=== PATIENT | female | born 1935 | race Caucasian/White ===

== ENCOUNTER 2020-02-22 11:44 | Inpatient (IN) | payer MEDICARE, SELFPAY ==
[2020-02-22 12:50] VITALS: BMI 30.5
[2020-02-22 12:52] VITALS: BP 165/72; PULSE 81; RESP 16; TEMP 36.6; O2SAT 92
[2020-02-22 13:09] VITALS: BMI 30.6
--- NOTE | 2020-02-22 14:35 | HP.PCM_ITS ---
Problem List (1) Debility Status: Acute (2) Cellulitis and abscess of buttock Status: Acute (3) Pulmonary embolism Status: Acute (4) Acute respiratory failure Status: Acute (5) Chronic obstructive pulmonary disease Status: Chronic (6) Hypertension Status: Chronic (7) Hyponatremia Status: Acute (8) Hypokalemia Status: Acute (9) Anemia Status: Acute History of Present Illness Date of Admission: 02/22/20 Chief Complaint: Here for rehabilitation, strengthening, prior to discharge home with . 02/08/20 The patient is a 84 year old Female with below past medical history admitted to [facility]. Admitted for cellulitis/abscess of buttock wounds. General Surgery performed incision & drainage of buttock abscess. Treated with IV antibiotics, discharged on oral antibiotics to compete course. Diagnosed with pulmonary embolism, treated with Eliquis to complete 3 to 6 month course. IVC filter placed due to bleeding on anticoagulation. Need to follow up with vascular surgery in 3 months for IVC filter removal. 02/22/20 Admit to TCU with debility, here for rehabilitation, strengthening, p rior to discharge home with . Past Medical History Past Medical History (Chronic Problems): Chronic Problems Chronic obstructive pulmonary disease (Chronic) Hypertension (Chronic) Allergies No Known Allergies Allergy (Verified 02/22/20 13:24) Home Medications: Ambulatory Orders Medication Instructions Recorded Acetaminophen [Non-Aspirin] 650 mg PO Q6H PRN 02/22/20 Albuterol Aerosols [Ventolin 2.5 mg INHALATION Q4HWA.RT PRN 02/22/20 Aerosols] Albuterol IH (ProAir) [Proair Hfa 2 puff INHALATION Q6H PRN PRN 02/22/20 (SP)Vent Pts] Amoxicillin/Potassium Clav 1 ea PO BID 02/22/20 [Amox-Clav 875-125 mg Tablet] Apixaban [Eliquis] 5 mg PO BID 02/22/20 Aspirin [Aspirin EC] 81 mg PO DAILY 02/22/20 Fluticasone 0.05% [Flonase Nasal 2 spray NASAL DAILY 02/22/20 Warren] Fluticasone/Umeclidin/Vilanter 1 ea IH DAILY 02/22/20 [Trelegy Ellipta 200-62.5-25] L. Acidophilus/L.bulgaricus 1 ea PO BID 02/22/20 [Lactobacillus Tablet] Metoprolol Succinate [Toprol Xl] 25 mg PO DAILY 02/22/20 Oxyquinoline-Na Lauryl Sulfate 0.025 % VAGINAL DAILY 02/22/20 Pantoprazole Sodium [Protonix] 40 mg PO BID 02/22/20 Potassium Chloride [Klor-Con M20] 20 meq PO BID 02/22/20 Sulfamethoxazole/Trimethoprim 1 ea PO BID 02/22/20 [Bactrim Ds Tablet] Surgical History: appendectomy, cataract - OD., cholecystectomy, colectomy - Partial., - - Ostomy, incision & drainage buttock abscess, tubal ligation. 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 Drugs: None - *Family History Maternal History Items: Diabetes, Heart Disease Review of Systems Constitutional: Denies: Chills, Fever, Weight Change HEENT: Denies: Head Aches, Sinus Congestion, Sinus Drainage Cardiovascular: Denies: Chest Pain, Palpitations Respiratory: Denies: Cough, Shortness of breath at rest, Sputum production Gastrointestinal: Denies: Abdominal Pain, Nausea, Vomiting Genitourinary: Denies: Dysuria Musculoskeletal: Denies: Joint Pain, Joint Tenderness Skin: Denies: Rash, Wounds Neurological: Denies: Numbness, Tingling, Focal weakness Psychiatric: Denies: Anxiety, Depression, Homicidal Ideations, Suicidal Ideations Hematologic/ Lymphatic: Denies: Easy Bruising, Easy Bleeding VTE Information - Inpt Only VTE Present on Admission: Yes VTE Mechan Device Prophylaxis: Knee High KOKO Hose VTE Pharm Prophylaxis ordered?: No Reason prophylaxis not ordered:: Treatment Not Indicated Patient Problems: Active and Suspected Problems Debility (Acute) Cellulitis and abscess of buttock (Acute) Pulmonary embolism (Acute) Acute respiratory failure (Acute) Hyponatremia (Acute) Hypokalemia (Acute) Anemia (Acute) - Physical Exam Vitals/I&O's: Vital Signs Temp Pulse Resp BP Pulse Ox 97.9 F 81 16 165/72 H 92 02/22/20 12:52 02/22/20 12:52 02/22/20 12:52 02/22/20 12:52 02/22/20 12:52 Oxygen Delivery Method Room Air Weight: 73.391 kg Body Mass Index (BMI) 30.5 Intake and Output for Last 24 Hours 02/20/20 02/21/20 02/22/20 23:59 23:59 23:59 Intake Total 120 / 120 Balance 120 / 120 General: Alert, Oriented x3, Cooperative HEENT: Atraumatic, PERRLA, EOMI, Normocephalic Neck: Supple, No JVD, Negative Carotid Bruits Lungs: Clear to auscultation, Normal air movement Cardiovascular: Regular rate, No murmurs Abdomen: Bowel Sounds Present, Soft, Non Tender, - - Colostomy. Extremities: No edema, Capillary Refill Less than 3 Seconds Skin: Ulcer/ Wound - Buttock wound per wound nurse. Musculoskeletal: No Tenderness to Palpation of Joints or Extremities Neurological: Cranial nerves II-XII grossly intact Psych/Mental Status: Normal Affect, Appropriate Current Medications Acetaminophen (Acetaminophen 325 Mg Tablet) 650 mg PO Q6H PRN PRN Reason: Pain Score 1-10 Albuterol Sulfate (Albuterol Sulfate 8 Gm Inhaler (60 Puffs)) 2 puff INHALATION Q6H PRN PRN PRN Reason: SOB &/OR WHEEZING Amoxicillin/Clavulanate Potassium (Amox/Clavulanate 875 Mg Tablet) [facility] Stop: 02/25/20 17:01 Apixaban (Apixaban 5 Mg Tablet) 5 mg PO BID [facility] Aspirin (Aspirin E.C. 81 Mg Tablet) 81 mg PO DAILY@0800 [facility] Fluticasone Propionate (Fluticasone 0.05% 1 [place] Nasal.Sry) 2 spray NASAL DAILY [facility] Lactobacillus Acidophilus (Lactobacillus Acidophilus) 1 tablet PO BID [facility] Stop: 02/29/20 18:01 Metoprolol Succinate (Metoprolol(Xl)Succ 25 Mg Tablet) 25 mg PO DAILY [facility] Pantoprazole Sodium (Pantoprazole Sodium 40 Mg Tablet) 40 mg PO BID [facility] Potassium Chloride (Potassium Chloride 20 Meq Tablet) 20 meq [facility] Fluticasone/Salmeterol (Fluticasone/Salmeterol 232-14 Inhaler) 1 puff IH BID [facility] Trimethoprim/Sulfamethoxazole (Smz/Tmp Ds Tablet) [facility] Stop: 02/25/20 17:01 Tuberculin PPD (Tuberculin,Purif.Prot.Deriv. 50 Tu/Ml Vial) 5 tu ID X1 ONE Stop: 02/23/20 10:01 Tuberculin PPD (Tuberculin,Purif.Prot.Deriv. 50 Tu/Ml Vial) 5 tu ID X1 ONE Stop: 03/01/20 10:01 Umeclidinium [place] (Umeclidinium [place] Inhaler) 1 puff IH DAILY [facility] Assessment/Plan All Active Problems Debility (Acute) Cellulitis and abscess of buttock (Acute) Pulmonary embolism (Acute) Acute respiratory failure (Acute) Hyponatremia (Acute) Hypokalemia (Acute) Anemia (Acute) 84 year old female with below past medical history hospitalized for cellulitis/abscess of buttock, underwent incision & drainage, complicated by acute respiratory failure secondary to pulmonary embolism, bleeding secondary to anticoagulation requiring IVC filter placement, admitted to TCU with debility, here for rehabilitation, strengthening, wound care, prior to discharge home with . * Debility - PT/OT. * Pain - Tylenol 1000MG Q6H PRN pain (1-10). * Bowel - Miralax 17GM daily, Senna/colace 1 tablet BID, MOM 30ML daily PRN, Dulcolax 10MG IN daily PRN. * Adult immunization - Administer Prevnar 13, Pneumovax 23, Fluzone as appropriate. * DVT prophylaxis - Not necessary, already on Eliquis. * COPD - Advair 232-14 1 puff BID, Umeclidinium 1 puff daily, Albuterol MDI 2 puffs Q6H PRN. * Cellulitis of buttock - Augmentin 875MG BID thru 02/25/20, Bactrim DS 1 tablet BID thru 02/25/20. * Pulmonary embolism - Eliquis 5MG BID thru 08/23/19. * Allergic Rhinitis - Flonase 2 spray nasal daily. * GI prophylaxis - Lactobacillus 1 tablet BID thru 02/29/20. * Hypertension - Metoprolol succinate 25MG daily. * GERD - Pantoprazole 40MG BID. * Hypokalemia - KCL 20MEQ BID. * Nutrition - Erick 1 packet BID. * Buttock wound - Consult Wound nurse.
[2020-02-22 15:50] VITALS: BP 165/72; PULSE 81; RESP 16; TEMP 36.6; O2SAT 92
[2020-02-22 15:51] VITALS: PULSE 81; RESP 16; O2SAT 92
--- NOTE | 2020-02-22 16:03 | CASEMGMT ---
Social Work Discussed code status with pt. Pt wishes to be DNR-CC. Nursing notified. MOLST form reviewed with pt, communication to , placed in chart. Rebeca Ricketts, HUMAN RESOURCES DEPARTMENT SUPERVISOR [employer]ULLER [employer]ROUGH
[2020-02-22] MEDS: Pantoprazole Sodium 40 MG Tablet PO (18:20)
[2020-02-22] MEDS: Smz/Tmp Ds Tablet 1 TABLET PO (18:20)
[2020-02-22] MEDS: APIXABAN 5 MG TABLET PO (18:20)
[2020-02-22] MEDS: Amox/Clavulanate 875 MG Tablet PO (18:20)
[2020-02-22] MEDS: Fluticasone/Salmeterol 232-14 Inhaler 1 PUFF IH (18:21)
--- NOTE | 2020-02-22 20:10 | NURSING ---
Called into pt room by ORGANIZATIONAL DEVELOPMENT MANAGER to check on buttock dressing, had come off at some point, wound cleaned with NS and new wet to dry dressing applied, covered with abd. Pt tolerated well.
[2020-02-23] MEDS: Acetaminophen 500 MG Tablet 1000 MG PO (00:06)
[2020-02-23 05:31] VITALS: BP 130/62; PULSE 83; RESP 18; TEMP 36.3; O2SAT 92
[2020-02-23 05:34] VITALS: BP 130/62; PULSE 83
[2020-02-23] MEDS: Polyethylene Glycol 3350 17 GM PACKET PO (05:34)
[2020-02-23] MEDS: Metoprolol(XL)Succ 25 MG Tablet PO (05:34)
[2020-02-23] MEDS: Senna/Docusate Sodium 1 Tablet PO ×2 (05:34→16:51)
[2020-02-23] MEDS: APIXABAN 5 MG TABLET PO ×2 (05:35→16:49)
[2020-02-23] MEDS: Pantoprazole Sodium 40 MG Tablet PO ×2 (05:35→16:51)
[2020-02-23] MEDS: Fluticasone 0.05% 1 SPRAY NASAL.SRY 2 SPRAY NASAL (05:36)
[2020-02-23] MEDS: Fluticasone/Salmeterol 232-14 Inhaler 1 PUFF IH ×2 (05:37→16:50)
[2020-02-23] MEDS: Umeclidinium Bromide Inhaler 1 PUFF IH (05:38)
[2020-02-23 06:59] LABS: Absolute Lymphocyte Count 1.73 X10^3/uL (0.83-4.51); Absolute Neutrophil Count 2.2 X10^3/uL (2.0-7.7); Basophil# 0.03 X10^3/uL; Basophil% 0.6 % (0-1); Eosinophil# 0.19 X10^3/uL; Eosinophils% 4.1 % (0-5); Hematocrit 31.4 % (37-47); Lymphocyte # 1.73 X10^3/ul (4.0); Lymphocyte % 37.2 % (19-41); Mean Corp Hgb Conc 31.8 g/dL (32-36); Mean Corpuscular Hgb 29.8 pg (27.0-32.0); Mean Corpuscular Volume 93.5 fL (81-99); Mean Platelet Vol. 9.2 fl (6.2-12.0); Monocyte# 0.48 X10^3/uL; Monocyte% 10.3 % (0-10); NRBC Flagged by Analyzer 0 % (0-5); Neutrophil # 2.21 X10^3/uL (2.7-7.7); Neutrophil % 47.6 % (47-70); Platelet Count 239 K/mm3 (150-450); RBC Distribution Width CV 16.3 % (11.6-14.6); RBC Distribution Width SD 55.8 fl (35.1-43.9); Red Blood Count 3.36 M/mm3 (4.2-5.4); White Blood Count 4.7 K/mm3 (4.4-11.0)
[2020-02-23 07:20] LABS: Anion Gap 4 (5-15); BUN 12 mg/dL (7-18); BUN/Creat Ratio 17.2 RATIO (10-20); Calcium,Total 8.5 mg/dL (8.5-10.1); Chloride 102 mmol/L (98-107); EST Glomerular Filtration Rate 85 mL/min (>60); Est Glom Filt Rate - Afr Amer 103 mL/min (>60); Estimated Creatinine Clearance 32.17 ml/min; Glucose 113 mg/dL (74-106); Potassium 3.3 mmol/L (3.5-5.1); Sodium Level 135 mmol/L (136-145)
[2020-02-23] MEDS: Smz/Tmp Ds Tablet 1 TABLET PO ×2 (07:57→16:49)
[2020-02-23] MEDS: Amox/Clavulanate 875 MG Tablet PO ×2 (07:57→16:49)
[2020-02-23] MEDS: Tuberculin,Purif.prot.deriv. 50 TU/ML Vial 5 ML ID (10:25)
[2020-02-23 14:15] VITALS: BP 86/57; PULSE 80; RESP 20; TEMP 36.2; O2SAT 90
[2020-02-24 05:28] VITALS: BP 91/50; PULSE 79; RESP 16; TEMP 36.6; O2SAT 90
[2020-02-24] MEDS: Senna/Docusate Sodium 1 Tablet PO (05:31)
[2020-02-24] MEDS: APIXABAN 5 MG TABLET PO ×2 (05:31→16:29)
[2020-02-24] MEDS: Pantoprazole Sodium 40 MG Tablet PO ×2 (05:31→16:29)
[2020-02-24] MEDS: Fluticasone/Salmeterol 232-14 Inhaler 1 PUFF IH ×2 (05:33→16:28)
[2020-02-24] MEDS: Umeclidinium Bromide Inhaler 1 PUFF IH (05:33)
[2020-02-24] MEDS: Amox/Clavulanate 875 MG Tablet PO ×2 (08:05→16:28)
[2020-02-24] MEDS: Smz/Tmp Ds Tablet 1 TABLET PO ×2 (08:05→16:30)
[2020-02-24 13:02] VITALS: PULSE 90; RESP 20; O2SAT 91
[2020-02-24 14:15] VITALS: BP 81/51; PULSE 82; RESP 16; TEMP 36.4; O2SAT 90
[2020-02-25 05:26] VITALS: BP 122/58; PULSE 72; RESP 16; TEMP 36.8; O2SAT 90
[2020-02-25] MEDS: Fluticasone/Salmeterol 232-14 Inhaler 1 PUFF IH ×2 (05:28→17:37)
[2020-02-25] MEDS: Umeclidinium Bromide Inhaler 1 PUFF IH (05:28)
[2020-02-25] MEDS: APIXABAN 5 MG TABLET PO ×2 (05:29→17:36)
[2020-02-25 05:30] VITALS: BP 122/58; PULSE 72
[2020-02-25] MEDS: Metoprolol(XL)Succ 25 MG Tablet PO (05:30)
[2020-02-25] MEDS: Pantoprazole Sodium 40 MG Tablet PO ×2 (05:30→17:36)
[2020-02-25] MEDS: Amox/Clavulanate 875 MG Tablet PO ×2 (07:57→17:36)
[2020-02-25] MEDS: Smz/Tmp Ds Tablet 1 TABLET PO ×2 (07:57→17:36)
--- NOTE | 2020-02-25 15:25 | NURSING ---
removed the colostomy appliance to assess the stoma to the left abdomen. stoma is well budded and pink. measures approx 1 1/2 and is oval in shape. peristomal skin is intact. cleansed with peristomal skin with warm water. pat dry. applied a new flat 2 piece Eze appliance with an Adaptic ring. pt tolerated well. appliance to be change twice a week and as needed.
--- NOTE | 2020-02-25 15:27 | NURSING ---
wound/stoma photo: abdomen
--- NOTE | 2020-02-25 15:28 | NURSING ---
wound photo: bilateral buttocks
[2020-02-25 17:48] VITALS: RESP 16; O2SAT 90
[2020-02-25 17:58] VITALS: BP 114/49; PULSE 68; RESP 18; TEMP 36.7; O2SAT 90
[2020-02-26 05:00] VITALS: BP 118/56; RESP 15; TEMP 36.1; O2SAT 97
[2020-02-26] MEDS: APIXABAN 5 MG TABLET PO ×2 (05:17→17:40)
[2020-02-26] MEDS: Umeclidinium Bromide Inhaler 1 PUFF IH (05:18)
[2020-02-26] MEDS: Pantoprazole Sodium 40 MG Tablet PO ×2 (05:20→17:40)
[2020-02-26 05:21] VITALS: BP 118/56; PULSE 65
[2020-02-26] MEDS: Senna/Docusate Sodium 1 Tablet PO (05:21)
[2020-02-26] MEDS: Metoprolol(XL)Succ 25 MG Tablet PO (05:21)
[2020-02-26] MEDS: Fluticasone/Salmeterol 232-14 Inhaler 1 PUFF IH ×2 (05:24→17:41)
[2020-02-26] MEDS: Nystatin Powder 15gm Bottle 1 APPLIC TOPICAL ×2 (06:20→17:41)
[2020-02-26] MEDS: Acetaminophen 500 MG Tablet 1000 MG PO (11:51)
--- NOTE | 2020-02-26 12:23 | PHA.CONS_ITS ---
<Ghanshyam English D - Last Filed: 02/26/20 12:23> Progress Note - Pharmacy Subjective: TCU Admission Objective: Allergies No Known Allergies Allergy (Verified 02/22/20 13:24) Current Medications Generic Name Dose Route Start Last Admin Trade Name Freq PRN Reason Stop Dose Admin Acetaminophen 1,000 mg 02/22/20 14:52 02/26/20 11:51 Acetaminophen 500 Mg Tablet PO 1,000 mg Q6H PRN Administration Pain Score 1-10 Albuterol Sulfate 2 puff 02/22/20 12:38 Albuterol Sulfate 8 Gm Inhaler (60 Puffs) INHALATION Q6H PRN PRN SOB &/OR WHEEZING Apixaban 5 mg 02/22/20 18:00 02/26/20 05:17 Apixaban 5 Mg Tablet PO 08/22/20 23:59 5 mg BID KRISTINE Administration Bisacodyl 10 mg 02/22/20 14:52 Bisacodyl 10 Mg Suppository RECTAL DAILY PRN Constipation Fluticasone Propionate 2 spray 02/23/20 06:00 02/26/20 05:19 Fluticasone 0.05% 1 [place] Nasal.Sry NASAL Not Given DAILY KRISTINE Lactobacillus Acidophilus 1 tablet 02/22/20 18:00 02/26/20 05:21 Lactobacillus Acidophilus PO 02/29/20 18:01 1 tablet BID KRISTINE Administration Magnesium Hydroxide 30 ml 02/22/20 14:52 Magnesium Hydroxide 30 Ml Udc PO DAILY PRN Constipation Metoprolol Succinate 25 mg 02/23/20 06:00 02/26/20 05:21 Metoprolol(Xl)Succ 25 Mg Tablet PO 25 mg DAILY KRISTINE Administration Nutritional Formula 1 packet 02/22/20 17:00 02/26/20 07:44 Nutritional Supplement (Erick) Packet PO 1 packet BIDCM KRISTINE Administration Nystatin 1 applic 02/26/20 06:00 02/26/20 06:20 Nystatin Powder 15gm Bottle TOPICAL 1 applicatio BID KRISTINE Administration Protocol Pantoprazole Sodium 40 mg 02/22/20 18:00 02/26/20 05:20 Pantoprazole Sodium 40 Mg Tablet PO 40 mg BID KRISTINE Administration Polyethylene Glycol 17 gm 02/23/20 06:00 02/26/20 05:20 Polyethylene Glycol 3350 17 Gm Packet PO Not Given DAILY KRISTINE Potassium Chloride 20 meq 02/22/20 17:00 02/26/20 07:44 Potassium Chloride 20 Meq Tablet PO 20 meq BIDCM KRISTINE Administration Fluticasone/Salmeterol 1 puff 02/22/20 18:00 02/26/20 05:24 Fluticasone/Salmeterol 232-14 Inhaler IH 1 puff BID KRISTINE Administration Senna/Docusate Sodium 1 tablet 02/22/20 18:00 02/26/20 05:21 Senna/Docusate Sodium 1 Tablet PO 1 tablet BID KRISTINE Administration Tuberculin PPD 5 tu 03/01/20 10:00 Tuberculin,Purif.Prot.Deriv. 50 Tu/Ml Vial ID 03/01/20 10:01 X1 ONE Umeclidinium [place] 1 puff 02/23/20 06:00 02/26/20 05:18 Umeclidinium [place] Inhaler IH 1 puff DAILY KRISTINE Administration Problem List Debility (Acute) Cellulitis and abscess of buttock (Acute) Pulmonary embolism (Acute) Acute respiratory failure (Acute) Chronic obstructive pulmonary disease (Chronic) Hypertension (Chronic) Hyponatremia (Acute) Hypokalemia (Acute) Anemia (Acute) Vital Signs Temp Pulse Resp BP Pulse Ox 97 F L 65 15 118/56 L 97 02/26/20 05:00 02/26/20 05:21 02/26/20 05:00 02/26/20 05:21 02/26/20 05:00 Oxygen Delivery Method Room Air Weight: 72.631 kg Body Mass Index (BMI) 30.5 Sodium 135 mmol/L (136-145) L 02/23/20 06:33 Potassium 3.3 mmol/L (3.5-5.1) L 02/23/20 06:33 Chloride 102 mmol/L (98-107) 02/23/20 06:33 Carbon Dioxide 29.0 mmol/L (21.0-32.0) 02/23/20 06:33 Anion Gap 4 (5-15) L 02/23/20 06:33 BUN 12 mg/dL (7-18) 02/23/20 06:33 Creatinine 0.70 mg/dL (0.55-1.02) 02/23/20 06:33 Est GFR (MDRD) Af Amer 103 mL/min (>60) 02/23/20 06:33 Est GFR (MDRD) Non-Af 85 mL/min (>60) 02/23/20 06:33 BUN/Creatinine Ratio 17.2 RATIO (10-20) 02/23/20 06:33 Glucose 113 mg/dL (74-106) H 02/23/20 06:33 Assessment/Plan: 1) Pain APAP for pain 1-10. Continue to monitor daily pain scores, prn medication use. 2) PE/HTN Metoprolol XL, apixaban. Continue to monitor BP/HR, s/s bleeding/clot. 3) Pulm Umeclidinium inh, fluticasone/salmeterol inh, albuterol inh prn. Continue to monitor prn medication use, for sob/wheeze. 4) GI Pantoprazole, lactobacillus. Continue to monitor s/s GI distress. 5) Nutrition KCL, Erick. Continue to monitor electrolytes. Psychotropic Medications: None Unnecessary Medications: None Bowel Regimen: 6) Senna/s, PEG, prn bisacodyl, MgOH prn. Continue to monitor prn medication use, for constipation/diarrhea. Date of Note:: 02/26/20 - Provider Comments Provider responsibility: Provider responsible to enter orders to implement recommendations <Oleg Roberts Chi - Last Filed: 02/26/20 14:21> Progress Note - Pharmacy Subjective: [] Objective: Allergies No Known Allergies Allergy (Verified 02/22/20 13:24) Current Medications Generic Name Dose Route Start Last Admin Trade Name Freq PRN Reason Stop Dose Admin Acetaminophen 1,000 mg 02/22/20 14:52 02/26/20 11:51 Acetaminophen 500 Mg Tablet PO 1,000 mg Q6H PRN Administration Pain Score 1-10 Albuterol Sulfate 2 puff 02/22/20 12:38 Albuterol Sulfate 8 Gm Inhaler (60 Puffs) INHALATION Q6H PRN PRN SOB &/OR WHEEZING Apixaban 5 mg 02/22/20 18:00 02/26/20 05:17 Apixaban 5 Mg Tablet PO 08/22/20 23:59 5 mg BID KRISTINE Administration Bisacodyl 10 mg 02/22/20 14:52 Bisacodyl 10 Mg Suppository RECTAL DAILY PRN Constipation Fluticasone Propionate 2 spray 02/23/20 06:00 02/26/20 05:19 Fluticasone 0.05% 1 [place] Nasal.Sry NASAL Not Given DAILY KRISTINE Lactobacillus Acidophilus 1 tablet 02/22/20 18:00 02/26/20 05:21 Lactobacillus Acidophilus PO 02/29/20 18:01 1 tablet BID KRISTINE Administration Magnesium Hydroxide 30 ml 02/22/20 14:52 Magnesium Hydroxide 30 Ml Udc PO DAILY PRN Constipation Metoprolol Succinate 25 mg 02/23/20 06:00 02/26/20 05:21 Metoprolol(Xl)Succ 25 Mg Tablet PO 25 mg DAILY KRISTINE Administration Nutritional Formula 1 packet 02/22/20 17:00 02/26/20 07:44 Nutritional Supplement (Erick) Packet PO 1 packet BIDCM KRISTINE Administration Nystatin 1 applic 02/26/20 06:00 02/26/20 06:20 Nystatin Powder 15gm Bottle TOPICAL 1 applicatio BID KRISTINE Administration Protocol Pantoprazole Sodium 40 mg 02/22/20 18:00 02/26/20 05:20 Pantoprazole Sodium 40 Mg Tablet PO 40 mg BID KRISTINE Administration Polyethylene Glycol 17 gm 02/23/20 06:00 02/26/20 05:20 Polyethylene Glycol 3350 17 Gm Packet PO Not Given DAILY KRISTINE Potassium Chloride 20 meq 02/22/20 17:00 02/26/20 07:44 Potassium Chloride 20 Meq Tablet PO 20 meq BIDCM KRISTINE Administration Fluticasone/Salmeterol 1 puff 02/22/20 18:00 02/26/20 05:24 Fluticasone/Salmeterol 232-14 Inhaler IH 1 puff BID KRISTINE Administration Senna/Docusate Sodium 1 tablet 02/22/20 18:00 02/26/20 05:21 Senna/Docusate Sodium 1 Tablet PO 1 tablet BID KRISTINE Administration Tuberculin PPD 5 tu 03/01/20 10:00 Tuberculin,Purif.Prot.Deriv. 50 Tu/Ml Vial ID 03/01/20 10:01 X1 ONE Umeclidinium [place] 1 puff 02/23/20 06:00 02/26/20 05:18 Umeclidinium [place] Inhaler IH 1 puff DAILY KRISTINE Administration Problem List Debility (Acute) Cellulitis and abscess of buttock (Acute) Pulmonary embolism (Acute) Acute respiratory failure (Acute) Chronic obstructive pulmonary disease (Chronic) Hypertension (Chronic) Hyponatremia (Acute) Hypokalemia (Acute) Anemia (Acute) Vital Signs Temp Pulse Resp BP Pulse Ox 97 F L 65 15 118/56 L 97 02/26/20 05:00 02/26/20 05:21 02/26/20 05:00 02/26/20 05:21 02/26/20 05:00 Oxygen Delivery Method Room Air Weight: 72.631 kg Body Mass Index (BMI) 30.5 Sodium 135 mmol/L (136-145) L 02/23/20 06:33 Potassium 3.3 mmol/L (3.5-5.1) L 02/23/20 06:33 Chloride 102 mmol/L (98-107) 02/23/20 06:33 Carbon Dioxide 29.0 mmol/L (21.0-32.0) 02/23/20 06:33 Anion Gap 4 (5-15) L 02/23/20 06:33 BUN 12 mg/dL (7-18) 02/23/20 06:33 Creatinine 0.70 mg/dL (0.55-1.02) 02/23/20 06:33 Est GFR (MDRD) Af Amer 103 mL/min (>60) 02/23/20 06:33 Est GFR (MDRD) Non-Af 85 mL/min (>60) 02/23/20 06:33 BUN/Creatinine Ratio 17.2 RATIO (10-20) 02/23/20 06:33 Glucose 113 mg/dL (74-106) H 02/23/20 06:33 Assessment/Plan: Psychotropic Medications: Unnecessary Medications: Bowel Regimen: - Provider Comments Provider responsibility: Provider responsible to enter orders to implement recommendations Provider Comments to Recommendations by Pharmacy: Agree
[2020-02-26 14:24] VITALS: BP 110/59; PULSE 85; RESP 17; TEMP 36.3; O2SAT 93
[2020-02-26 14:29] VITALS: PULSE 81; RESP 18; O2SAT 96
[2020-02-27 07:05] VITALS: BP 127/91; PULSE 76; RESP 16; TEMP 36.8; O2SAT 91
[2020-02-27] MEDS: APIXABAN 5 MG TABLET PO ×2 (07:06→17:39)
[2020-02-27 07:07] VITALS: BP 127/91; PULSE 76
[2020-02-27] MEDS: Pantoprazole Sodium 40 MG Tablet PO ×2 (07:07→17:39)
[2020-02-27] MEDS: Fluticasone/Salmeterol 232-14 Inhaler 1 PUFF IH ×2 (07:07→17:37)
[2020-02-27] MEDS: Umeclidinium Bromide Inhaler 1 PUFF IH (07:07)
[2020-02-27] MEDS: Metoprolol(XL)Succ 25 MG Tablet PO (07:07)
[2020-02-27] MEDS: Nystatin Powder 15gm Bottle 1 APPLIC TOPICAL ×2 (07:07→17:45)
--- NOTE | 2020-02-27 13:04 | CASEMGMT ---
Social Work IDT met with patient and dtr via conference call for care plan meeting. pt is min-mod for bed mobility, CGA for tx, ambulating 80 ft with FWW, and fatigues quickly while ambulating. Pt is mod for toileting, min for clothing management, mod for supine to sit, max for LE dressing, UE set up. ST completed DIMITRIS - score 66/100. ST recommending dtr manage finances and meds at DC until pt is clear to resume. ST to work on verbal and written comprehension tasks, having difficulty following directions and sequencing. Pt is on a regular diet, intake varies, but does snack, receiving Erick, weight stable. Pt is out of isolation 03/07. Nursing management wound and would like it healed prior to DC, and to manage colostomy. Explained [facility] AARP insurance with NRD 03/03 and continued stay is not guaranteed, with EDC 03/09. Explained and provided care plan to pt. Explained today is day of Medicare days. The goal is for pt to return home with , 2 steps to enter, 13 steps to basement with laundry and walk-in shower. IDT recommending continued stay for rehab and wound healing. Will continue to follow. Rebeca Ricketts, MARCO ANTONIO HAYESW
[2020-02-27] MEDS: Acetaminophen 500 MG Tablet 1000 MG PO (14:13)
--- NOTE | 2020-02-27 14:26 | NURSING ---
Luna inserted d/t wound on buttocks. Pt tolerated well Luna draining yellow clear urine.
[2020-02-27 14:31] VITALS: BP 114/53; PULSE 76; RESP 17; TEMP 36.6; O2SAT 93
[2020-02-28 06:47] VITALS: BP 141/77; PULSE 74; RESP 16; TEMP 36.6; O2SAT 90
[2020-02-28] MEDS: APIXABAN 5 MG TABLET PO ×2 (06:50→17:59)
[2020-02-28] MEDS: Umeclidinium Bromide Inhaler 1 PUFF IH (06:50)
[2020-02-28] MEDS: Fluticasone/Salmeterol 232-14 Inhaler 1 PUFF IH ×2 (06:50→17:59)
[2020-02-28 06:51] VITALS: BP 141/77; PULSE 74
[2020-02-28] MEDS: Metoprolol(XL)Succ 25 MG Tablet PO (06:51)
[2020-02-28] MEDS: Pantoprazole Sodium 40 MG Tablet PO ×2 (06:51→17:59)
[2020-02-28] MEDS: Nystatin Powder 15gm Bottle 1 APPLIC TOPICAL ×2 (06:52→17:59)
[2020-02-28 10:00] VITALS: PULSE 82; RESP 18; O2SAT 93
--- NOTE | 2020-02-28 11:36 | MDS.RN ---
Pain interview for BORA 02/29/20 completed.
[2020-02-28 14:57] VITALS: BP 92/56; PULSE 70; RESP 14; TEMP 36.3; O2SAT 100
[2020-02-28] MEDS: Acetaminophen 500 MG Tablet 1000 MG PO (15:35)
[2020-02-29 06:03] VITALS: BP 149/97; PULSE 67; RESP 16; TEMP 36.3; O2SAT 94
[2020-02-29 06:05] VITALS: BP 149/97; PULSE 67
[2020-02-29] MEDS: Metoprolol(XL)Succ 25 MG Tablet PO (06:05)
[2020-02-29] MEDS: APIXABAN 5 MG TABLET PO ×2 (06:06→17:07)
[2020-02-29] MEDS: Pantoprazole Sodium 40 MG Tablet PO ×2 (06:06→17:07)
[2020-02-29] MEDS: Fluticasone/Salmeterol 232-14 Inhaler 1 PUFF IH ×2 (06:07→17:08)
[2020-02-29] MEDS: Umeclidinium Bromide Inhaler 1 PUFF IH (06:07)
[2020-02-29] MEDS: Nystatin Powder 15gm Bottle 1 APPLIC TOPICAL ×2 (06:10→17:08)
[2020-02-29 15:04] VITALS: BP 87/54; PULSE 83; RESP 16; TEMP 36; O2SAT 93
[2020-03-01 05:00] VITALS: BP 132/100; PULSE 77; RESP 18; TEMP 36.4; O2SAT 94
[2020-03-01 05:37] VITALS: BP 132/100; PULSE 77
[2020-03-01] MEDS: Metoprolol(XL)Succ 25 MG Tablet PO (05:37)
[2020-03-01] MEDS: APIXABAN 5 MG TABLET PO ×2 (05:37→17:04)
[2020-03-01] MEDS: Pantoprazole Sodium 40 MG Tablet PO ×2 (05:37→17:04)
[2020-03-01] MEDS: Fluticasone/Salmeterol 232-14 Inhaler 1 PUFF IH ×2 (05:38→17:04)
[2020-03-01] MEDS: Nystatin Powder 15gm Bottle 1 APPLIC TOPICAL ×2 (05:38→17:06)
[2020-03-01] MEDS: Umeclidinium Bromide Inhaler 1 PUFF IH (05:39)
[2020-03-01 06:44] LABS: Absolute Lymphocyte Count 2.26 X10^3/uL (0.83-4.51); Absolute Neutrophil Count 1.5 X10^3/uL (2.0-7.7); Basophil# 0.01 X10^3/uL; Basophil% 0.2 % (0-1); Eosinophil# 0.16 X10^3/uL; Eosinophils% 3.6 % (0-5); Hematocrit 36.1 % (37-47); Hemoglobin 11.4 g/dL (12.0-15.0); Lymphocyte # 2.26 X10^3/ul (4.0); Lymphocyte % 50.2 % (19-41); Mean Corp Hgb Conc 31.6 g/dL (32-36); Mean Corpuscular Hgb 29.7 pg (27.0-32.0); Mean Platelet Vol. 9.2 fl (6.2-12.0); Monocyte# 0.57 X10^3/uL; Monocyte% 12.7 % (0-10); NRBC Flagged by Analyzer 0 % (0-5); Neutrophil # 1.49 X10^3/uL (2.7-7.7); Neutrophil % 33.1 % (47-70); Platelet Count 261 K/mm3 (150-450); RBC Distribution Width CV 16.8 % (11.6-14.6); RBC Distribution Width SD 58.3 fl (35.1-43.9); Red Blood Count 3.84 M/mm3 (4.2-5.4); White Blood Count 4.5 K/mm3 (4.4-11.0)
[2020-03-01 07:00] LABS: Anion Gap 7 (5-15); BUN 19 mg/dL (7-18); BUN/Creat Ratio 22.9 RATIO (10-20); Calcium,Total 8.7 mg/dL (8.5-10.1); Chloride 101 mmol/L (98-107); Creatinine, Serum 0.83 mg/dL (0.55-1.02); EST Glomerular Filtration Rate 70 mL/min (>60); Est Glom Filt Rate - Afr Amer 85 mL/min (>60); Estimated Creatinine Clearance 38.75 ml/min; Glucose 98 mg/dL (74-106); Potassium 4.2 mmol/L (3.5-5.1); Sodium Level 134 mmol/L (136-145)
[2020-03-01 16:00] VITALS: BP 121/64; PULSE 80; RESP 16; TEMP 36.6; O2SAT 93
[2020-03-01] MEDS: Tuberculin,Purif.prot.deriv. 50 TU/ML Vial 5 ML ID (17:04)
[2020-03-02 05:00] VITALS: BP 121/60; PULSE 68; RESP 16; TEMP 36.5; O2SAT 91
[2020-03-02] MEDS: Umeclidinium Bromide Inhaler 1 PUFF IH (05:06)
[2020-03-02] MEDS: Fluticasone/Salmeterol 232-14 Inhaler 1 PUFF IH ×2 (05:07→16:55)
[2020-03-02 05:08] VITALS: BP 121/60; PULSE 68
[2020-03-02] MEDS: Metoprolol(XL)Succ 25 MG Tablet PO (05:08)
[2020-03-02] MEDS: APIXABAN 5 MG TABLET PO ×2 (05:08→16:56)
[2020-03-02] MEDS: Pantoprazole Sodium 40 MG Tablet PO ×2 (05:08→16:56)
[2020-03-02] MEDS: Nystatin Powder 15gm Bottle 1 APPLIC TOPICAL ×2 (05:25→17:06)
--- NOTE | 2020-03-02 15:36 | NURSING ---
Dressing changed to buttock wound per orders.
[2020-03-02 15:48] VITALS: BP 127/66; PULSE 86; RESP 16; TEMP 36.2; O2SAT 90
[2020-03-02 22:00] VITALS: BP 114/62; PULSE 84; RESP 16; TEMP 36.8; O2SAT 92
--- NOTE | 2020-03-03 01:51 | NURSING ---
2200 clinical findings completed on pt at this time. pt noted to be scratching all over, skin is red and dry in appearance. aloe vista cream applied to all areas that were itching and green pad covered with sheet, reports that she feels better. feet are noted to be less red than yesterday and elevated off the bed with pillow. dressing changed to buttocks, tissue surrounding the incisions is noted to be purple in color with small open areas from tape being pulled off with the dressing change. incisions cleansed as per order and packed with gauze. duoderm was placed on either side of the buttocks for the tape to adhere to when the abd is applied. rn aware of pt skin condition
[2020-03-03 05:00] VITALS: BP 101/72; PULSE 83; RESP 16; TEMP 36.8; O2SAT 92
[2020-03-03] MEDS: Fluticasone/Salmeterol 232-14 Inhaler 1 PUFF IH (06:11)
[2020-03-03] MEDS: APIXABAN 5 MG TABLET PO ×2 (06:11→17:46)
[2020-03-03] MEDS: Umeclidinium Bromide Inhaler 1 PUFF IH (06:11)
[2020-03-03 06:12] VITALS: BP 101/72; PULSE 83
[2020-03-03] MEDS: Metoprolol(XL)Succ 25 MG Tablet PO (06:12)
[2020-03-03] MEDS: Pantoprazole Sodium 40 MG Tablet PO ×2 (06:12→17:46)
[2020-03-03] MEDS: Senna/Docusate Sodium 1 Tablet PO (06:13)
[2020-03-03] MEDS: Nystatin Powder 15gm Bottle 1 APPLIC TOPICAL ×2 (06:27→17:46)
[2020-03-03 12:48] VITALS: PULSE 76; RESP 18; O2SAT 90
[2020-03-03 14:34] VITALS: BP 97/53; PULSE 77; RESP 17; TEMP 37.3; O2SAT 90
--- NOTE | 2020-03-03 15:58 | NURSING ---
wound photo: abdomen
--- NOTE | 2020-03-03 15:59 | NURSING ---
wound photo: buttocks
--- NOTE | 2020-03-03 17:18 | NURSING ---
Addendum entered by Myah Best 03/03/20 18:51: PAPER STEAMER AWARE OF POSITIVE RESULT. DR SERNA NOTIFIED. Original Note: LAB CALLED AND REPORTED R' POSITIVE FOR COVID. NOTIFIED PALLET RECTIFIER JOSY PURVIS.
--- NOTE | 2020-03-03 18:49 | NURSING ---
Pt made aware of positive covid test. Pt preferred that I call her daughter to update her. Called Daughter and let her know of positive test. Dr Roberts updated and would like to order monoclonal Antibodies. Called Pharmacy to see how to put order in. [place] from pharmacy unsure of the protocol for TCU. Pharmacist said to contact Robert in the AM.
[2020-03-03 20:20] VITALS: TEMP 36.4
[2020-03-03 23:50] VITALS: TEMP 36.6
[2020-03-04 01:58] VITALS: TEMP 36.6
--- NOTE | 2020-03-04 04:53 | NURSING ---
Addendum entered by Khushboo Hudson 03/04/20 06:48: Patients Oxygen saturation at 87-88%. Placed Oxygen on patient at 2 LPM via nasal cannula. Oxygen increased to 93%. Original Note: Patient refused HS care with this nurse. Stated, I like to do it in the AM. Patient without COVID symptoms at this time. No complaints voiced.
[2020-03-04 05:00] VITALS: RESP 20; TEMP 36.6; O2SAT 88; O2SAT 93
[2020-03-04 06:26] VITALS: BP 138/79; PULSE 88
[2020-03-04] MEDS: Fluticasone/Salmeterol 232-14 Inhaler 1 PUFF IH ×2 (06:26→17:46)
[2020-03-04] MEDS: Metoprolol(XL)Succ 25 MG Tablet PO (06:26)
[2020-03-04] MEDS: Umeclidinium Bromide Inhaler 1 PUFF IH (06:26)
[2020-03-04] MEDS: Pantoprazole Sodium 40 MG Tablet PO ×2 (06:27→17:45)
[2020-03-04] MEDS: APIXABAN 5 MG TABLET PO ×2 (06:27→17:45)
[2020-03-04] MEDS: Senna/Docusate Sodium 1 Tablet PO (06:27)
[2020-03-04] MEDS: Nystatin Powder 15gm Bottle 1 APPLIC TOPICAL ×2 (06:31→17:46)
[2020-03-04 10:00] VITALS: PULSE 82; RESP 18; O2SAT 93
[2020-03-04 10:14] LABS: ALB/GLOB Ratio 0.9 RATIO (0.9-2.4); AST(SGOT) 30 U/L (15-37); Alanine Aminotransfer ALT/SGPT 21 U/L (13-56); Albumin, Serum 2.9 g/dL (3.2-5.0); Alkaline Phosphatase 102 U/L (45-117); Anion Gap 7 (5-15); BUN 17 mg/dL (7-18); BUN/Creat Ratio 20.3 RATIO (10-20); Calcium,Total 8.4 mg/dL (8.5-10.1); Chloride 99 mmol/L (98-107); Creatinine, Serum 0.84 mg/dL (0.55-1.02); EST Glomerular Filtration Rate 69 mL/min (>60); Est Glom Filt Rate - Afr Amer 84 mL/min (>60); Estimated Creatinine Clearance 38.29 ml/min; Globulin 3.4 g/dL (2.2-4.2); Glucose 131 mg/dL (74-106); Potassium 4.2 mmol/L (3.5-5.1); Protein, Total 6.3 g/dL (6.4-8.2); Sodium Level 131 mmol/L (136-145)
--- NOTE | 2020-03-04 14:31 | NURSING ---
Received order for D5 .45 NS @ 75ml/hr to run continuously unit pt starts eating and drinking more. Albuterol 2.5mg qh4 PRN and Hydrocortisone cream BID PRN for itching.
--- NOTE | 2020-03-04 14:37 | MDS.RN ---
Information for the mds was obtained from review of the clinical record, interview of resident, staff, and direct observation of resident's care.
--- NOTE | 2020-03-04 15:15 | NURSING ---
Resident and family updated on COVID status on unit.
[2020-03-04] MEDS: Dext 5%-0.45% NS 1,000 ML 75 ML IV (15:17)
[2020-03-04 15:33] VITALS: BP 142/78; PULSE 80; RESP 18; TEMP 36.4; O2SAT 96
[2020-03-04 19:10] VITALS: BP 130/61; PULSE 79; RESP 18; TEMP 36.8; O2SAT 97
[2020-03-05 05:00] VITALS: BP 92/64; PULSE 92; RESP 16; TEMP 36.6; O2SAT 97
[2020-03-05] MEDS: 0.9% Saline Lock 10 ML Syringe IV (05:20)
[2020-03-05] MEDS: Dext 5%-0.45% NS 1,000 ML 75 ML IV ×2 (05:23→19:16)
[2020-03-05] MEDS: Senna/Docusate Sodium 1 Tablet PO (05:25)
[2020-03-05] MEDS: dexAMETHasone 4 MG Tablet 6 MG PO (05:25)
[2020-03-05] MEDS: Pantoprazole Sodium 40 MG Tablet PO ×2 (05:25→16:14)
[2020-03-05] MEDS: APIXABAN 5 MG TABLET PO ×2 (05:25→16:14)
[2020-03-05] MEDS: Fluticasone/Salmeterol 232-14 Inhaler 1 PUFF IH ×2 (05:34→16:15)
[2020-03-05] MEDS: Nystatin Powder 15gm Bottle 1 APPLIC TOPICAL ×2 (05:35→16:24)
[2020-03-05] MEDS: Hydrocortisone 2.5% Crm 1 APPLIC TOPICAL (06:00)
[2020-03-05 06:07] LABS: Hematocrit 33.4 % (37-47); Hemoglobin 10.6 g/dL (12.0-15.0); Mean Corp Hgb Conc 31.7 g/dL (32-36); Mean Corpuscular Hgb 29.4 pg (27.0-32.0); Mean Corpuscular Volume 92.8 fL (81-99); Mean Platelet Vol. 9.2 fl (6.2-12.0); Platelet Count 244 K/mm3 (150-450); RBC Distribution Width CV 16.2 % (11.6-14.6)
[2020-03-05 06:31] LABS: AST(SGOT) 24 U/L (15-37); Alanine Aminotransfer ALT/SGPT 16 U/L (13-56)
[2020-03-05 06:33] VITALS: BP 126/82
[2020-03-05 06:36] VITALS: BP 126/82; PULSE 92
[2020-03-05] MEDS: Metoprolol(XL)Succ 25 MG Tablet PO (06:36)
[2020-03-05] MEDS: Umeclidinium Bromide Inhaler 1 PUFF IH (06:37)
[2020-03-05 06:43] VITALS: PULSE 92; RESP 16; O2SAT 97
--- NOTE | 2020-03-05 09:42 | PCA ---
Rescheduled post op appointment 03/12/[address] Vernon regarding IVC filter. Explained patient was positive for Covid. Their office prefers 28 day wait for and appt after a positive test. Nurse said that she will let Doctor know and that if he wanted to see her sooner they will call us. Gave office are number of [phone] and to ask for water resource specialist if they needed to reach us. Also tried to schedule with gang worker Dr. Joya. Per scheduling they will have office call us as his schedule his full. gave them are unit number [phone]. Appointment Scheduled with general surgery. 03/25/2020 @ 1pm.
[2020-03-05] MEDS: 0.9% Normal Saline 250 ML IV.SOLN. IV (10:00)
[2020-03-05 10:16] VITALS: BP 140/78; PULSE 86; RESP 16; TEMP 36.1; O2SAT 95
--- NOTE | 2020-03-05 12:51 | CASEMGMT ---
Social Work Complete phone call with pt to follow up on well-being. Pt appeared in good spirits, states she is doing well, feels fine, and isn't bored. Offered any assistance , pt declined. Will continue to follow. Rebeca Ricketts, KILN BURNER INSTRUMENT AND CONTROL SERVICE PERSON
[2020-03-05] MEDS: Acetaminophen 500 MG Tablet 1000 MG PO (14:25)
[2020-03-05 16:00] VITALS: BP 148/78; PULSE 77; RESP 19; TEMP 36.7; O2SAT 95
--- NOTE | 2020-03-05 16:26 | PCM.HP.ID ---
Problem List (1) COVID-19 Status: Acute Reason for Consult: covid Consulted by: Dr. Roberts History of Present Illness: The patient is a 84 year old F admitted to OSH with buttock abscess, requiring surgical I&D. Completed course of abx. Hospital stay complicated by PE. Now here with continued hypoxia, covid was (+), asymptomatic, started on dex and remdesivir. Full ROS performed and neg except as noted above. - Medical History Past Medical History (Chronic Problems): Chronic Problems Chronic obstructive pulmonary disease (Chronic) Hypertension (Chronic) Allergies/Adverse Reactions: Allergies No Known Allergies Allergy (Verified 02/22/20 13:24) Home Medications: Ambulatory Orders Medication Instructions Recorded Acetaminophen [Non-Aspirin] 650 mg PO Q6H PRN 02/22/20 Albuterol Aerosols [Ventolin 2.5 mg INHALATION Q4HWA.RT PRN 02/22/20 Aerosols] Albuterol IH (ProAir) [Proair Hfa 2 puff INHALATION Q6H PRN PRN 02/22/20 (SP)Vent Pts] Amoxicillin/Potassium Clav 1 ea PO BID 02/22/20 [Amox-Clav 875-125 mg Tablet] Apixaban [Eliquis] 5 mg PO BID 02/22/20 Aspirin [Aspirin EC] 81 mg PO DAILY 02/22/20 Fluticasone 0.05% [Flonase Nasal 2 spray NASAL DAILY 02/22/20 [place]] Fluticasone/Umeclidin/Vilanter 1 ea IH DAILY 02/22/20 [Trelegy Ellipta 200-62.5-25] L. Acidophilus/L.bulgaricus 1 ea PO BID 02/22/20 [Lactobacillus Tablet] Metoprolol Succinate [Toprol Xl] 25 mg PO DAILY 02/22/20 Oxyquinoline-Na Lauryl Sulfate 0.025 % VAGINAL DAILY 02/22/20 Pantoprazole Sodium [Protonix] 40 mg PO BID 02/22/20 Potassium Chloride [Klor-Con M20] 20 meq PO BID 02/22/20 Sulfamethoxazole/Trimethoprim 1 ea PO BID 02/22/20 [Bactrim Ds Tablet] - Social History SMOKING STATUS:: Former smoker Vital Signs Temp Pulse Resp BP Pulse Ox 98.0 F 77 19 H 148/78 H 95 03/05/20 16:00 03/05/20 16:00 03/05/20 16:00 03/05/20 16:00 03/05/20 16:00 Oxygen Flow Rate (L/min) 2 Oxygen Delivery Method Nasal Cannula Weight: 69.57 kg Body Mass Index (BMI) 30.5 Microbiology Past 72 Hours 03/03/20 12:25 SARS-CoV-2 Antigen (Rapid) - Final Nasal Secretion SARS-CoV-2 (COVID 19) Laboratory Tests Past 24 Hrs 03/05/20 03/05/20 05:45 05:45 WBC 5.0 RBC 3.60 L Hgb 10.6 L Hct 33.4 L MCV 92.8 MCH 29.4 MCHC 31.7 L RDW Std Deviation 56.0 H RDW Coeff of Tricia 16.2 H Plt Count 244 MPV 9.2 AST 24 ALT 16 - Other Studies Radiology: [] reviewed Other Studies: [] Route of nutrition/ use of supplements: [] Nutritional Intake: [] IV Site: [] Luna Catheter: [] - Physical Exam General: Alert, Cooperative, No apparent distress HEENT: Atraumatic, PERRLA, EOMI Neck: Supple, No Nodes Lungs: Clear to auscultation, Diminished Cardiovascular: Regular rate, Regular Rhythm Abdomen: Soft, Non Tender, Non-Distended Extremities: No edema Skin: No rashes, Ulcer/ Wound - reviewed photos IV Site: Peripheral, without redness Musculoskeletal: No Tenderness to Palpation of Joints or Extremities - Assessment/Plan Antibiotics: [] Assessment/Plan: [] Active and Suspected Problems Debility (Acute) Cellulitis and abscess of buttock (Acute) Pulmonary embolism (Acute) Acute respiratory failure (Acute) Hyponatremia (Acute) Hypokalemia (Acute) Anemia (Acute) covid - some hypoxia here. With PE at the previous hospital and lack of current symptoms, question how long this covid has been going on for. Ok for remdesivir and dex as planned. Will monitor cmp while on remdesivir. On eliquis for anticoag. Buttock wound doing well, d/w wound care. Plan on quarantine for 20 days from (+) test on 03/03. Will follow as needed, thank you.
--- NOTE | 2020-03-05 22:14 | NURSING ---
pt restng quietly in the bed with eyes closed, no needs are voiced. iv infusing with out difficulty. pt declined to finish po fluids earlier in the shift pt was encouraged d/t she needed nutrition for wound healing. pt stated take it away I don't want it. SPO2 checked at this time and was 97% on O2 at 2l/m via n/c heart rate was 71. respirations nonlabored and no distress noted.
--- NOTE | 2020-03-06 00:07 | NURSING ---
pt awake and repositioned for comfort . iv infusing with out difficulty pt reports no discomfort and sob noted. SPO2 is 96% on 2lm via n/c and heart rate is 57, respirations of 20. pt voiced no other needs
--- NOTE | 2020-03-06 02:37 | NURSING ---
pt continues to rest quietly and awakens easily to be checked and repositioned in the bed. iv infusing with out difficulty and is intact. SPO2 is at 95% on 2l/m via n/c with respirations at 20. heart rate at 66. pt denied any pain or discomfort at this time.
[2020-03-06] MEDS: dexAMETHasone 4 MG Tablet 6 MG PO (04:52)
[2020-03-06] MEDS: APIXABAN 5 MG TABLET PO ×2 (04:52→17:41)
[2020-03-06 04:53] VITALS: BP 120/88; PULSE 70
[2020-03-06] MEDS: Metoprolol(XL)Succ 25 MG Tablet PO (04:53)
[2020-03-06] MEDS: Pantoprazole Sodium 40 MG Tablet PO ×2 (04:53→17:41)
[2020-03-06] MEDS: Fluticasone/Salmeterol 232-14 Inhaler 1 PUFF IH ×2 (04:54→16:28)
[2020-03-06] MEDS: Umeclidinium Bromide Inhaler 1 PUFF IH (04:55)
[2020-03-06] MEDS: Nystatin Powder 15gm Bottle 1 APPLIC TOPICAL ×2 (04:55→16:29)
[2020-03-06 05:00] VITALS: BP 120/88; PULSE 70; RESP 16; TEMP 36.4; O2SAT 97
[2020-03-06 05:51] VITALS: PULSE 70; RESP 16
[2020-03-06 05:54] LABS: ALB/GLOB Ratio 0.7 RATIO (0.9-2.4); AST(SGOT) 19 U/L (15-37); Alanine Aminotransfer ALT/SGPT 16 U/L (13-56); Albumin, Serum 2.6 g/dL (3.2-5.0); Alkaline Phosphatase 91 U/L (45-117); Anion Gap 5 (5-15); BUN 14 mg/dL (7-18); BUN/Creat Ratio 20.8 RATIO (10-20); Calcium,Total 8.4 mg/dL (8.5-10.1); Chloride 101 mmol/L (98-107); Creatinine, Serum 0.67 mg/dL (0.55-1.02); EST Glomerular Filtration Rate 89 mL/min (>60); Est Glom Filt Rate - Afr Amer 107 mL/min (>60); Estimated Creatinine Clearance 32.17 ml/min; Globulin 3.9 g/dL (2.2-4.2); Glucose 131 mg/dL (74-106); Protein, Total 6.5 g/dL (6.4-8.2); Sodium Level 132 mmol/L (136-145)
[2020-03-06] MEDS: 0.9% Saline Lock 10 ML Syringe IV (07:13)
[2020-03-06] MEDS: Dext 5%-0.45% NS 1,000 ML 75 ML IV ×2 (07:14→22:12)
[2020-03-06 10:00] VITALS: PULSE 67; O2SAT 95
[2020-03-06] MEDS: Acetaminophen 500 MG Tablet 1000 MG PO ×2 (10:46→21:35)
[2020-03-06 11:13] VITALS: BP 126/80; PULSE 67; RESP 16; O2SAT 97
[2020-03-06 16:00] VITALS: BP 100/70; PULSE 96; RESP 16; TEMP 36.6; O2SAT 96
[2020-03-07 05:00] VITALS: BP 100/68; PULSE 65; RESP 18; TEMP 36.6; O2SAT 98
[2020-03-07] MEDS: Fluticasone/Salmeterol 232-14 Inhaler 1 PUFF IH ×2 (05:07→17:54)
[2020-03-07] MEDS: dexAMETHasone 4 MG Tablet 6 MG PO (05:09)
[2020-03-07] MEDS: Umeclidinium Bromide Inhaler 1 PUFF IH (05:09)
[2020-03-07 05:10] VITALS: PULSE 70
[2020-03-07] MEDS: APIXABAN 5 MG TABLET PO ×2 (05:10→17:53)
[2020-03-07] MEDS: Metoprolol(XL)Succ 25 MG Tablet PO (05:10)
[2020-03-07] MEDS: Pantoprazole Sodium 40 MG Tablet PO ×2 (05:10→17:53)
[2020-03-07] MEDS: Nystatin Powder 15gm Bottle 1 APPLIC TOPICAL ×2 (05:14→17:53)
[2020-03-07 06:43] LABS: ALB/GLOB Ratio 0.7 RATIO (0.9-2.4); AST(SGOT) 20 U/L (15-37); Alanine Aminotransfer ALT/SGPT 15 U/L (13-56); Albumin, Serum 2.5 g/dL (3.2-5.0); Alkaline Phosphatase 77 U/L (45-117); Anion Gap 7 (5-15); BUN 16 mg/dL (7-18); Calcium,Total 8.5 mg/dL (8.5-10.1); Chloride 103 mmol/L (98-107); EST Glomerular Filtration Rate 85 mL/min (>60); Est Glom Filt Rate - Afr Amer 103 mL/min (>60); Estimated Creatinine Clearance 32.17 ml/min; Globulin 3.6 g/dL (2.2-4.2); Glucose 113 mg/dL (74-106); Protein, Total 6.1 g/dL (6.4-8.2); Sodium Level 135 mmol/L (136-145)
[2020-03-07] MEDS: 0.9% Normal Saline 250 ML IV.SOLN. IV (09:38)
[2020-03-07 10:00] VITALS: PULSE 64; RESP 16
[2020-03-07] MEDS: Dext 5%-0.45% NS 1,000 ML 75 ML IV (12:07)
[2020-03-07] MEDS: 0.9% Saline Lock 10 ML Syringe IV (12:07)
[2020-03-07 16:00] VITALS: BP 124/80; PULSE 64; RESP 16; TEMP 36.4; O2SAT 99
[2020-03-07] MEDS: Acetaminophen 500 MG Tablet 1000 MG PO (18:10)
--- NOTE | 2020-03-07 18:37 | NURSING ---
Colostomy changed per orders, pt tolerated well.
[2020-03-08] MEDS: Dext 5%-0.45% NS 1,000 ML 75 ML IV ×2 (01:27→15:30)
[2020-03-08 05:21] VITALS: BP 128/84; PULSE 66; RESP 147; TEMP 36.3; O2SAT 95
[2020-03-08 05:30] VITALS: BP 128/84; PULSE 66; RESP 17; TEMP 36.3; O2SAT 95
[2020-03-08] MEDS: Polyethylene Glycol 3350 17 GM PACKET PO (05:59)
[2020-03-08 06:00] VITALS: PULSE 66
[2020-03-08] MEDS: Pantoprazole Sodium 40 MG Tablet PO ×2 (06:00→17:37)
[2020-03-08] MEDS: Metoprolol(XL)Succ 25 MG Tablet PO (06:00)
[2020-03-08] MEDS: APIXABAN 5 MG TABLET PO ×2 (06:00→17:37)
[2020-03-08] MEDS: dexAMETHasone 4 MG Tablet 6 MG PO (06:00)
[2020-03-08] MEDS: Fluticasone/Salmeterol 232-14 Inhaler 1 PUFF IH ×2 (06:01→17:40)
[2020-03-08] MEDS: Umeclidinium Bromide Inhaler 1 PUFF IH (06:02)
[2020-03-08] MEDS: Nystatin Powder 15gm Bottle 1 APPLIC TOPICAL ×2 (06:07→17:42)
[2020-03-08 08:32] LABS: Absolute Lymphocyte Count 1.33 X10^3/uL (0.83-4.51); Absolute Neutrophil Count 6.7 X10^3/uL (2.0-7.7); Hematocrit 35.8 % (37-47); Hemoglobin 11.7 g/dL (12.0-15.0); Lymphocyte # 1.33 X10^3/ul (4.0); Lymphocyte % 15.5 % (19-41); Mean Corp Hgb Conc 32.7 g/dL (32-36); Mean Corpuscular Hgb 30.2 pg (27.0-32.0); Mean Corpuscular Volume 92.5 fL (81-99); Monocyte# 0.54 X10^3/uL; Monocyte% 6.3 % (0-10); NRBC Flagged by Analyzer 0 % (0-5); Neutrophil # 6.66 X10^3/uL (2.7-7.7); Neutrophil % 77.6 % (47-70); Platelet Count 297 K/mm3 (150-450); RBC Distribution Width CV 15.7 % (11.6-14.6); RBC Distribution Width SD 53.5 fl (35.1-43.9); Red Blood Count 3.87 M/mm3 (4.2-5.4); White Blood Count 8.6 K/mm3 (4.4-11.0)
[2020-03-08 09:01] LABS: Anion Gap 4 (5-15); BUN 19 mg/dL (7-18); BUN/Creat Ratio 25.1 RATIO (10-20); Calcium,Total 8.5 mg/dL (8.5-10.1); Chloride 102 mmol/L (98-107); Creatinine, Serum 0.76 mg/dL (0.55-1.02); EST Glomerular Filtration Rate 78 mL/min (>60); Est Glom Filt Rate - Afr Amer 94 mL/min (>60); Estimated Creatinine Clearance 32.17 ml/min; Glucose 138 mg/dL (74-106); Potassium 4.1 mmol/L (3.5-5.1); Sodium Level 134 mmol/L (136-145)
[2020-03-08 10:00] VITALS: BP 110/70; PULSE 65; RESP 18; TEMP 36.1; O2SAT 95
[2020-03-08] MEDS: Acetaminophen 500 MG Tablet 1000 MG PO ×2 (11:45→17:55)
[2020-03-08] MEDS: Albuterol Sulfate 8 gm Inhaler (60 puffs) 2 PUFF INHALATION (12:42)
[2020-03-08 16:00] VITALS: BP 105/75; PULSE 67; RESP 16; TEMP 36.3; O2SAT 97
--- NOTE | 2020-03-08 21:30 | NURSING ---
Focused assessment completed at this time. Heart is regular, lungs diminished throughout, pt did not cough while in room but states she has had a slight cough intermittently. O2 sat 96% on RA. Denies SOB. Pt pulled up in bed, made comfortable with pillows offloading pressure on buttock wound. States no further needs at this time.
[2020-03-09 05:00] VITALS: BP 130/86; PULSE 65; RESP 16; TEMP 36.5; O2SAT 97
[2020-03-09] MEDS: Umeclidinium Bromide Inhaler 1 PUFF IH (05:38)
[2020-03-09] MEDS: Nystatin Powder 15gm Bottle 1 APPLIC TOPICAL ×2 (05:38→17:34)
[2020-03-09] MEDS: Fluticasone/Salmeterol 232-14 Inhaler 1 PUFF IH ×2 (05:39→17:34)
[2020-03-09] MEDS: Dext 5%-0.45% NS 1,000 ML 75 ML IV ×2 (05:39→17:35)
[2020-03-09] MEDS: dexAMETHasone 4 MG Tablet 6 MG PO (05:40)
[2020-03-09] MEDS: APIXABAN 5 MG TABLET PO ×2 (05:41→17:33)
[2020-03-09] MEDS: Pantoprazole Sodium 40 MG Tablet PO ×2 (05:41→17:33)
[2020-03-09 05:42] VITALS: PULSE 65
[2020-03-09] MEDS: Metoprolol(XL)Succ 25 MG Tablet PO (05:42)
[2020-03-09] MEDS: Acetaminophen 500 MG Tablet 1000 MG PO (12:34)
[2020-03-09 15:55] VITALS: BP 110/76; PULSE 65; RESP 18; TEMP 37.2; O2SAT 96
[2020-03-09 22:44] VITALS: PULSE 61; RESP 16; O2SAT 95
[2020-03-10 05:09] VITALS: BP 120/60; PULSE 68; RESP 18; TEMP 36.4; O2SAT 94
[2020-03-10] MEDS: Fluticasone/Salmeterol 232-14 Inhaler 1 PUFF IH ×2 (05:12→17:42)
[2020-03-10 05:15] VITALS: BP 120/60; PULSE 68
[2020-03-10] MEDS: dexAMETHasone 4 MG Tablet 6 MG PO (05:15)
[2020-03-10] MEDS: APIXABAN 5 MG TABLET PO ×2 (05:15→17:41)
[2020-03-10] MEDS: Pantoprazole Sodium 40 MG Tablet PO ×2 (05:15→17:41)
[2020-03-10] MEDS: Metoprolol(XL)Succ 25 MG Tablet PO (05:15)
[2020-03-10] MEDS: Nystatin Powder 15gm Bottle 1 APPLIC TOPICAL ×2 (05:37→17:43)
[2020-03-10] MEDS: Hydrocortisone 2.5% Crm 1 APPLIC TOPICAL (05:42)
[2020-03-10] MEDS: Dext 5%-0.45% NS 1,000 ML 75 ML IV ×2 (06:51→18:57)
[2020-03-10] MEDS: Umeclidinium Bromide Inhaler 1 PUFF IH (06:51)
[2020-03-10 09:37] VITALS: PULSE 65; RESP 18; O2SAT 95
[2020-03-10] MEDS: Acetaminophen 500 MG Tablet 1000 MG PO ×2 (10:53→18:57)
[2020-03-10 13:31] VITALS: BP 134/72; PULSE 71; RESP 18; TEMP 36.8; O2SAT 95
--- NOTE | 2020-03-11 01:47 | NURSING ---
pt resting in bed. denies c/o pain or sob. requesting not to be repositioned at this time.
[2020-03-11] MEDS: APIXABAN 5 MG TABLET PO ×2 (03:49→17:34)
[2020-03-11] MEDS: dexAMETHasone 4 MG Tablet 6 MG PO (03:49)
[2020-03-11 03:50] VITALS: BP 124/80; PULSE 84
[2020-03-11] MEDS: Umeclidinium Bromide Inhaler 1 PUFF IH (03:50)
[2020-03-11] MEDS: Metoprolol(XL)Succ 25 MG Tablet PO (03:50)
[2020-03-11] MEDS: Pantoprazole Sodium 40 MG Tablet PO ×2 (03:51→17:34)
[2020-03-11] MEDS: Nystatin Powder 15gm Bottle 1 APPLIC TOPICAL ×2 (03:51→17:34)
[2020-03-11] MEDS: hydrOXYzine PAM 25 MG Capsule PO (03:52)
[2020-03-11] MEDS: Fluticasone/Salmeterol 232-14 Inhaler 1 PUFF IH ×2 (03:57→17:34)
[2020-03-11] MEDS: Hydrocortisone 2.5% Crm 1 APPLIC TOPICAL (03:59)
--- NOTE | 2020-03-11 06:19 | NURSING ---
at 0345 pt c/o itching all over. Cortisone cream applied and vistaril po given. excoriations noted to both thighs and buttock. pt reassessed at 0615. eyes closed and resting quietly without signs of distress.
[2020-03-11] MEDS: Dext 5%-0.45% NS 1,000 ML 75 ML IV ×2 (07:31→19:27)
[2020-03-11 10:00] VITALS: PULSE 71; RESP 18; O2SAT 98
[2020-03-11] MEDS: Acetaminophen 500 MG Tablet 1000 MG PO (12:23)
[2020-03-11 14:23] VITALS: BP 134/70; PULSE 63; RESP 18; TEMP 36.1; O2SAT 96
--- NOTE | 2020-03-11 18:25 | RAD_ITS ---
STUDY: X-RAY CHEST REASON FOR EXAM: Female, 84 years old. COVID 19 positive. Increased cough. TECHNIQUE: Single AP portable view of the chest. COMPARISON: None. FINDINGS: The lungs are mildly hypoexpanded. There is linear density at both lung bases thought to be atelectatic. There is no demonstrated pleural abnormality. Normal size heart. Normal mediastinum and jeb. Normal visualized pulmonary arteries. There is atherosclerotic calcification of the aortic arch with tortuosity. The thoracic spine is obscured by the mediastinum. There is degenerative osteoarthritis of the bilateral shoulders. There is no demonstrated abnormality of the visualized soft tissue structures of the upper abdomen. RAD/Chest 1 View (Portable) IMPRESSION: Limited inspiration. Mild bibasilar atelectasis versus early infiltrate. Electronically Signed: Chuck Loco DO at 19:33 EST Tel [phone], Service support ,
[2020-03-11 19:15] LABS: Absolute Lymphocyte Count 1.63 X10^3/uL (0.83-4.51); Absolute Neutrophil Count 7.4 X10^3/uL (2.0-7.7); Basophil# 0.01 X10^3/uL; Basophil% 0.1 % (0-1); Hematocrit 35.4 % (37-47); Hemoglobin 11.5 g/dL (12.0-15.0); Lymphocyte # 1.63 X10^3/ul (4.0); Lymphocyte % 16.8 % (19-41); Mean Corp Hgb Conc 32.5 g/dL (32-36); Mean Corpuscular Hgb 29.3 pg (27.0-32.0); Mean Corpuscular Volume 90.3 fL (81-99); Mean Platelet Vol. 8.8 fl (6.2-12.0); Monocyte# 0.57 X10^3/uL; Monocyte% 5.9 % (0-10); NRBC Flagged by Analyzer 0.3 % (0-5); Neutrophil # 7.42 X10^3/uL (2.7-7.7); Neutrophil % 76.5 % (47-70); Platelet Count 346 K/mm3 (150-450); RBC Distribution Width CV 15.8 % (11.6-14.6); RBC Distribution Width SD 51.8 fl (35.1-43.9); Red Blood Count 3.92 M/mm3 (4.2-5.4); White Blood Count 9.7 K/mm3 (4.4-11.0)
[2020-03-11 19:32] LABS: Anion Gap 8 (5-15); BUN 25 mg/dL (7-18); BUN/Creat Ratio 26.5 RATIO (10-20); Calcium,Total 8.3 mg/dL (8.5-10.1); Chloride 103 mmol/L (98-107); Creatinine, Serum 0.94 mg/dL (0.55-1.02); EST Glomerular Filtration Rate 60 mL/min (>60); Est Glom Filt Rate - Afr Amer 73 mL/min (>60); Estimated Creatinine Clearance 34.22 ml/min; Glucose 183 mg/dL (74-106); Potassium 4.3 mmol/L (3.5-5.1); Sodium Level 135 mmol/L (136-145)
[2020-03-11 19:42] LABS: Mucous, Urine 0 SEEN /hpf (<or=2+)
[2020-03-11 19:44] LABS: Color, Urine Yellow (Yellow); Glucose, Dipstick Normal (Normal); Ketone-Dipstick Negative (Negative); Leukocyte Esterase-Dipstick 500 /ul (Negative); Nitrite-Dipstick Positive (Negative); Occult Blood-Urine 25 /ul (Negative); Protein-Dipstick Negative (Negative); Specific Gravity, Urine 1.005 (1.002-1.030); Urine Bilirubin Dipstick Negative (Negative); Urine Clarity Sl. Cloudy (Clear); Urine Urobilinogen Normal (Normal)
[2020-03-11 19:51] LABS: Red Blood Cells-Urine 0-5 SEEN /hpf (0-5); White Blood Cells 25-50 SEEN /hpf (0-5)
[2020-03-11 19:52] LABS: Amorphous Sediment 1+ PHOS; Bacteria 1+ /hpf (None Seen); Squamous Epithelial Cells - UA 0-5 SEEN /hpf (5-10)
[2020-03-11] MEDS: levoFLOXacin IV 750 MG/150 ML BAG 100 MG IV (21:25)
[2020-03-11 21:51] VITALS: RESP 16; O2SAT 97
[2020-03-12] MEDS: Acetaminophen 500 MG Tablet 1000 MG PO (02:10)
[2020-03-12 07:32] VITALS: BP 105/72; PULSE 67; RESP 18; TEMP 36.6; O2SAT 96
[2020-03-12] MEDS: dexAMETHasone 4 MG Tablet 6 MG PO (07:33)
[2020-03-12] MEDS: Dext 5%-0.45% NS 1,000 ML 75 ML IV ×2 (07:33→21:17)
[2020-03-12 07:34] VITALS: BP 105/72; PULSE 67
[2020-03-12] MEDS: Pantoprazole Sodium 40 MG Tablet PO ×2 (07:34→18:46)
[2020-03-12] MEDS: Metoprolol(XL)Succ 25 MG Tablet PO (07:34)
[2020-03-12] MEDS: APIXABAN 5 MG TABLET PO ×2 (07:34→18:48)
[2020-03-12] MEDS: Umeclidinium Bromide Inhaler 1 PUFF IH (07:35)
[2020-03-12] MEDS: Fluticasone/Salmeterol 232-14 Inhaler 1 PUFF IH ×2 (07:36→18:47)
[2020-03-12] MEDS: Nystatin Powder 15gm Bottle 1 APPLIC TOPICAL ×2 (07:37→18:48)
[2020-03-12 10:00] VITALS: BP 147/72; PULSE 71; RESP 18; TEMP 36.4; O2SAT 95
[2020-03-12 11:56] VITALS: PULSE 71; RESP 20; O2SAT 95
--- NOTE | 2020-03-12 13:50 | NURSING ---
pt colostomy bag changed, stoma beefy red. stool pieces formed but soft. pt turned on RT side. pleasant and cooperative. sat 97% on room air. pt continues with moist productive cough, reminded to cough it up and throw away in trash receptacle. denies pain. pt states she still very tired. IVF still infusing via new IV in RT hand/wrist. call light in reach.
--- NOTE | 2020-03-12 16:06 | PCM.PN.ID ---
Patient Problems: Active and Suspected Problems Debility (Acute) Cellulitis and abscess of buttock (Acute) Pulmonary embolism (Acute) Acute respiratory failure (Acute) Hyponatremia (Acute) Hypokalemia (Acute) Anemia (Acute) COVID-19 (Acute) Subjective: Feeling fine, no fever, no abd pain. Reported to have cloudy urine yesterday. Breathing fine. - Physical Exam Vitals/I&O's: Vital Signs Temp Pulse Resp BP Pulse Ox 97.5 F L 71 20 H 147/72 H 95 03/12/20 10:00 03/12/20 11:56 03/12/20 11:56 03/12/20 10:00 03/12/20 11:56 Oxygen Flow Rate (L/min) 3 Oxygen Delivery Method Nasal Cannula Weight: 70.2 kg Body Mass Index (BMI) 30.5 Intake and Output for Last 24 Hours 03/10/20 03/11/20 03/12/20 23:59 23:59 23:59 Intake Total 2262.5 / 2262.5 2107.5 / 2107.5 1387.5 / 1387.5 Output Total 1974 / 1974 3450 / 3450 1850 / 1850 Balance 287.5 / 287.5 -1342.5 / -1342.5 -462.5 / -462.5 General: Alert, Cooperative, No apparent distress Lungs: Clear to auscultation, Normal air movement Cardiovascular: Regular rate, Regular Rhythm Abdomen: Soft, Non Tender, Non-Distended Skin: No rashes Laboratory Results 03/11/20 19:00: WBC 9.7, RBC 3.92 L, Hgb 11.5 L, Hct 35.4 L, MCV 90.3, MCH 29.3, MCHC 32.5, RDW Std Deviation 51.8 H, RDW Coeff of Tricia 15.8 H, Plt Count 346, MPV 8.8, Immature Gran % (Auto) 0.700, Neut % (Auto) 76.5 H, Lymph % (Auto) 16.8 L, [place] % (Auto) 5.9, Eos % (Auto) 0.0, Baso % (Auto) 0.1, Absolute Neuts (auto) 7.4, Absolute Lymphs (auto) 1.63, Nucleated RBC % 0.3 03/11/20 19:00: Sodium 135 L, Potassium 4.3, Chloride 103, Carbon Dioxide 24.0, Anion Gap 8, BUN 25 H, Creatinine 0.94, Estim Creat Clear Calc 34.22, Est GFR (MDRD) Af Amer 73, Est GFR (MDRD) Non-Af 60, BUN/Creatinine Ratio 26.5 H, Glucose 183 H, Calcium 8.3 L 03/11/20 19:34: Urine Color Yellow, Urine Clarity Sl. Cloudy, Urine pH 7.0, Ur Specific [place] 1.005, Urine Protein Negative, Urine Glucose (UA) Normal, Urine Ketones Negative, Urine Occult Blood 25 H, Urine Nitrite Positive H, Urine Bilirubin Negative, Urine Urobilinogen Normal, Ur Leukocyte Esterase 500 H, Urine RBC 0-5 SEEN, Urine WBC 25-50 SEEN, Ur Squamous Epith Cells 0-5 SEEN, Amorphous Sediment 1+ PHOS, Urine Bacteria 1+, Urine Mucus 0 SEEN Current Medications Acetaminophen (Acetaminophen 500 Mg Tablet) 1,000 mg PO Q6H PRN PRN Reason: Pain Score 1-10 Last Admin: 03/12/20 02:10 Dose: 1,000 mg Documented by: Albuterol Sulfate (Albuterol Sulfate 8 Gm Inhaler (60 Puffs)) 2 puff INHALATION Q4H PRN PRN PRN Reason: SOB &/OR WHEEZING Last Admin: 03/08/20 12:42 Dose: 2 inhaler Documented by: Apixaban (Apixaban 5 Mg Tablet) 5 mg PO BID [facility] Stop: 08/22/20 23:59 Last Admin: 03/12/20 07:34 Dose: 5 mg Documented by: Bisacodyl (Bisacodyl 10 Mg Suppository) 10 mg RECTAL DAILY PRN PRN Reason: Constipation Dexamethasone (Dexamethasone 4 Mg Tablet) 6 mg PO DAILY [facility] Stop: 03/15/20 06:01 Last Admin: 03/12/20 07:33 Dose: 6 mg Documented by: Fluticasone Propionate (Fluticasone 0.05% 1 [place] Nasal.Sry) 2 spray NASAL DAILY [facility] Last Admin: 03/12/20 07:35 Dose: Not Given Documented by: Hydrocortisone (Hydrocortisone 2.5% Crm) 1 applic TOPICAL BID PRN PRN; Protocol PRN Reason: RASH/TOPICAL IRRITATION Last Admin: 03/11/20 03:59 Dose: 1 applicatio Documented by: Dextrose/Sodium Chloride () 1,000 mls @ 75 mls/hr IV .[id number] [facility] Last Admin: 03/12/20 07:33 Dose: 75 mls/hr Documented by: Levofloxacin (Levaquin Iv) 750 mg in 150 mls @ 100 mls/hr IV Q48H [facility] Stop: 03/18/20 22:01 Magnesium Hydroxide (Magnesium Hydroxide 30 Ml Udc) 30 ml PO DAILY PRN PRN Reason: Constipation Metoprolol Succinate (Metoprolol(Xl)Succ 25 Mg Tablet) 25 mg PO DAILY [facility] Last Admin: 03/12/20 07:34 Dose: 25 mg Documented by: Nutritional Formula ([facility]ritional Supp[facility] ([place]) [facility]) [facility] Last Admin: 03/12/20 07:37 Dose: 1 packet Documented by: Nystatin (Nystatin Powder 15gm Bottle) 1 applic TOPICAL BID [facility]; Protocol Last Admin: 03/12/20 07:37 Dose: 1 applicatio Documented by: Pantoprazole Sodium (Pantoprazole Sodium 40 Mg Tablet) 40 mg PO BID [facility] Last Admin: 03/12/20 07:34 Dose: 40 mg Documented by: Polyethylene Glycol (Polyethylene Glycol 3350 17 Gm Packet) 17 gm PO DAILY [facility] Last Admin: 03/12/20 07:35 Dose: Not Given Documented by: Potassium Chloride (Potassium Chloride 20 Meq Tablet) 20 meq PO BIDCM [facility] Last Admin: 03/12/20 07:37 Dose: 20 meq Documented by: Fluticasone/Salmeterol (Fluticasone/Salmeterol 232-14 Inhaler) 1 puff IH BID [facility] Last Admin: 03/12/20 07:36 Dose: 1 puff Documented by: Senna/Docusate Sodium (Senna/Docusate Sodium 1 Tablet) 1 tablet PO BID [facility] Last Admin: 03/12/20 07:35 Dose: Not Given Documented by: Sodium Chloride (0.9% Saline Lock 10 Ml Syringe) 10 - 40 ml IV UD PRN PRN Reason: SALINE FLUSH Last Admin: 03/07/20 12:07 Dose: 10 ml Documented by: Sodium Chloride (0.9% Normal Saline 250 Ml Iv.Soln.) 250 ml IV DAILY PRN PRN Reason: IVPB Last Admin: 03/07/20 09:38 Dose: 250 ml Documented by: Umeclidinium [place] (Umeclidinium [place] Inhaler) 1 puff IH DAILY [facility] Last Admin: 03/12/20 07:35 Dose: 1 puff Documented by: Medical Necessity - Tobacco Use Smoking Status: Former smoker Tobacco Use: Non-smoker Route of nutrition/ use of supplements: [] Nutritional Intake: [] IV Site: [] Luna Catheter: [] - Assessment/Plan Antibiotics: [] Assessment/Plan: [] Active and Suspected Problems Debility (Acute) Cellulitis and abscess of buttock (Acute) Pulmonary embolism (Acute) Acute respiratory failure (Acute) Hyponatremia (Acute) Hypokalemia (Acute) Anemia (Acute) covid with hypoxia and recent dx PE - completed remdesivir, on dex. Plan on quarantine for 20 days from (+) test on 03/03. Now with cloudy urine and abnormal UA, feeling fine otherwise. Ucx pending. Day 2 of levaquin, may be able to stop after dose tomorrow. Will follow, d/w nursing
[2020-03-13 05:00] VITALS: BP 138/88; PULSE 61; RESP 18; TEMP 36.2; O2SAT 97
[2020-03-13 06:10] VITALS: RESP 18
[2020-03-13] MEDS: APIXABAN 5 MG TABLET PO ×2 (06:18→17:45)
[2020-03-13 06:19] VITALS: BP 138/88; PULSE 61
[2020-03-13] MEDS: Metoprolol(XL)Succ 25 MG Tablet PO (06:19)
[2020-03-13] MEDS: dexAMETHasone 4 MG Tablet 6 MG PO (06:19)
[2020-03-13] MEDS: Pantoprazole Sodium 40 MG Tablet PO ×2 (06:19→17:45)
[2020-03-13] MEDS: Fluticasone/Salmeterol 232-14 Inhaler 1 PUFF IH ×2 (06:21→17:46)
[2020-03-13] MEDS: Umeclidinium Bromide Inhaler 1 PUFF IH (06:21)
[2020-03-13] MEDS: Nystatin Powder 15gm Bottle 1 APPLIC TOPICAL ×2 (06:23→17:46)
--- NOTE | 2020-03-13 09:14 | NURSING ---
[employer]ber Management Technician spoke with ID regarding resident reemaining in COVID precautions for 20 days. ID felt her drop in POx was related to the PE and not COVID. Dr. Roberts also agreed to remove her from precautions.
--- NOTE | 2020-03-13 09:18 | PN.ID_ITS ---
Patient Problems: Active and Suspected Problems Debility (Acute) Cellulitis and abscess of buttock (Acute) Pulmonary embolism (Acute) Acute respiratory failure (Acute) Hyponatremia (Acute) Hypokalemia (Acute) Anemia (Acute) COVID-19 (Acute) - Physical Exam Vitals/I&O's: Vital Signs Temp Pulse Resp BP Pulse Ox 97.1 F L 61 18 138/88 H 97 03/13/20 05:00 03/13/20 06:19 03/13/20 06:10 03/13/20 06:19 03/13/20 05:00 Oxygen Flow Rate (L/min) 3 Oxygen Delivery Method Room Air Weight: 70.2 kg Body Mass Index (BMI) 30.5 Intake and Output for Last 24 Hours 03/11/20 03/12/20 03/13/20 23:59 23:59 23:59 Intake Total 2107.5 / 2107.5 2387.5 / 2387.5 Output Total 3450 / 3450 2650 / 2650 1000 / 1000 Balance -1342.5 / -1342.5 -262.5 / -262.5 -1000 / -1000 Microbiology Past 72 Hours 03/11/20 19:34 Urine Catheter - Luna Urine Culture - Final Pseudomonas aeroginosa Current Medications Acetaminophen (Acetaminophen 500 Mg Tablet) 1,000 mg PO Q6H PRN PRN Reason: Pain Score 1-10 Last Admin: 03/12/20 02:10 Dose: 1,000 mg Documented by: Albuterol Sulfate (Albuterol Sulfate 8 Gm Inhaler (60 Puffs)) 2 puff INHALATION Q4H PRN PRN PRN Reason: SOB &/OR WHEEZING Last Admin: 03/08/20 12:42 Dose: 2 inhaler Documented by: Apixaban (Apixaban 5 Mg Tablet) 5 mg PO BID [facility] Stop: 08/22/20 23:59 Last Admin: 03/13/20 06:18 Dose: 5 mg Documented by: Bisacodyl (Bisacodyl 10 Mg Suppository) 10 mg RECTAL DAILY PRN PRN Reason: Constipation Dexamethasone (Dexamethasone 4 Mg Tablet) 6 mg PO DAILY [facility] Stop: 03/15/20 06:01 Last Admin: 03/13/20 06:19 Dose: 6 mg Documented by: Fluticasone Propionate (Fluticasone 0.05% 1 [place] Nasal.Sry) 2 spray NASAL DAILY [facility] Last Admin: 03/13/20 06:18 Dose: Not Given Documented by: Hydrocortisone (Hydrocortisone 2.5% Crm) 1 applic TOPICAL BID PRN PRN; Protocol PRN Reason: RASH/TOPICAL IRRITATION Last Admin: 03/11/20 03:59 Dose: 1 applicatio Documented by: Dextrose/Sodium Chloride () 1,000 mls @ 75 mls/hr IV .[id number] [facility] Last Admin: 03/12/20 21:17 Dose: 75 mls/hr Documented by: Ciprofloxacin (Cipro) 400 mg in 200 mls @ 200 mls/hr IV Q12 [facility] Stop: 03/16/20 18:01 Magnesium Hydroxide (Magnesium Hydroxide 30 Ml Udc) 30 ml PO DAILY PRN PRN Reason: Constipation Metoprolol Succinate (Metoprolol(Xl)Succ 25 Mg Tablet) 25 mg PO DAILY [facility] Last Admin: 03/13/20 06:19 Dose: 25 mg Documented by: Nutritional Formula (Nutritional Supplement ([place]rick) Packet) 1 packet PO BIDCM [facility] Last Admin: 03/13/20 07:52 Dose: 1 packet Documented by: Nystatin (Nystatin Powder 15gm Bottle) 1 applic TOPICAL BID [facility]; Protocol Last Admin: 03/13/20 06:23 Dose: 1 applicatio Documented by: Pantoprazole Sodium (Pantoprazole Sodium 40 Mg Tablet) 40 mg PO BID [facility] Last Admin: 03/13/20 06:19 Dose: 40 mg Documented by: Polyethylene Glycol (Polyethylene Glycol 3350 17 Gm Packet) 17 gm PO DAILY [facility] Last Admin: 03/13/20 06:19 Dose: Not Given Documented by: Potassium Chloride (Potassium Chloride 20 Meq Tablet) 20 meq PO BIDCM [facility] Last Admin: 03/13/20 07:52 Dose: 20 meq Documented by: Fluticasone/Salmeterol (Fluticasone/Salmeterol 232-14 Inhaler) 1 puff IH BID [facility] Last Admin: 03/13/20 06:21 Dose: 1 puff Documented by: Senna/Docusate Sodium (Senna/Docusate Sodium 1 Tablet) 1 tablet PO BID [facility] Last Admin: 03/13/20 06:19 Dose: Not Given Documented by: Sodium Chloride (0.9% Saline Lock 10 Ml Syringe) 10 - 40 ml IV UD PRN PRN Reason: SALINE FLUSH Last Admin: 03/07/20 12:07 Dose: 10 ml Documented by: Sodium Chloride (0.9% Normal Saline 250 Ml Iv.Soln.) 250 ml IV DAILY PRN PRN Reason: IVPB Last Admin: 03/07/20 09:38 Dose: 250 ml Documented by: Umeclidinium [place] (Umeclidinium [place] Inhaler) 1 puff IH DAILY [facility] Last Admin: 03/13/20 06:21 Dose: 1 puff Documented by: Medical Necessity - Tobacco Use Smoking Status: Former smoker Tobacco Use: Non-smoker Route of nutrition/ use of supplements: [] Nutritional Intake: [] IV Site: [] Luna Catheter: [] - Assessment/Plan Antibiotics: [] Assessment/Plan: [] Active and Suspected Problems Debility (Acute) Cellulitis and abscess of buttock (Acute) Pulmonary embolism (Acute) Acute respiratory failure (Acute) Hyponatremia (Acute) Hypokalemia (Acute) Anemia (Acute) covid with hypoxia and recent dx PE - completed remdesivir, on dex. Test was (+) 03/03, but hypoxia and pulmonary emboli started much earlier than that. By the time remdesivir started 03/04, hypoxia had resolved. Will stop isolation as she is over 10 days out from her (+) test and is not receiving any aerosol generating procedures. Pseudomonas uti - developed cloudy urine and abnormal UA, feeling fine otherwise. Cx shows I to levaquin, changed to cipro, plan on 3 day course. Will follow as needed, thank you
[2020-03-13] MEDS: Dext 5%-0.45% NS 1,000 ML 75 ML IV (10:58)
--- NOTE | 2020-03-13 14:22 | NURSING ---
Resident and family updated on COVID status on the unit.
[2020-03-13 16:00] VITALS: BP 160/62; PULSE 77; RESP 18; TEMP 36.7; O2SAT 92
[2020-03-13] MEDS: Ciprofloxacin 400 MG/200 ML BAG 200 MG IV (17:50)
[2020-03-14] MEDS: Dext 5%-0.45% NS 1,000 ML 75 ML IV (00:45)
[2020-03-14] MEDS: Acetaminophen 500 MG Tablet 1000 MG PO ×2 (02:39→20:22)
[2020-03-14 05:00] VITALS: BP 163/65; PULSE 54; RESP 16; TEMP 36.4; O2SAT 98
[2020-03-14 05:53] VITALS: BP 163/65; PULSE 54
[2020-03-14] MEDS: Ciprofloxacin 400 MG/200 ML BAG 200 MG IV ×2 (05:53→16:55)
[2020-03-14] MEDS: Metoprolol(XL)Succ 25 MG Tablet PO (05:53)
[2020-03-14] MEDS: APIXABAN 5 MG TABLET PO ×2 (05:54→17:01)
[2020-03-14] MEDS: dexAMETHasone 4 MG Tablet 6 MG PO (05:54)
[2020-03-14] MEDS: Umeclidinium Bromide Inhaler 1 PUFF IH (05:55)
[2020-03-14] MEDS: Nystatin Powder 15gm Bottle 1 APPLIC TOPICAL ×2 (05:56→17:01)
[2020-03-14] MEDS: Fluticasone/Salmeterol 232-14 Inhaler 1 PUFF IH ×2 (05:56→17:01)
[2020-03-14] MEDS: Pantoprazole Sodium 40 MG Tablet PO ×2 (05:57→17:01)
--- NOTE | 2020-03-14 11:47 | CASEMGMT ---
[employer] inquiring about family training for wounds and colostomy bag. Due to COVID outbreak status, family cannot come in for training. Spoke with about training and he deferred to dtr. Spoke with dtr - she had been taking care of her colotomy bag prior and is able to learn further and for wounds. Suggested video call with nursing for training. Dtr agreeable. Dtr available 03/17 for training. Nursing aware. Will continue to follow. Rebeca Ricketts, [employer]
[2020-03-14 13:50] VITALS: BP 126/65; PULSE 56; RESP 18; TEMP 36.4; O2SAT 95
[2020-03-14] MEDS: 0.9% Saline Lock 10 ML Syringe IV (16:58)
[2020-03-14 23:02] VITALS: RESP 16
[2020-03-15 05:00] VITALS: BP 121/74; PULSE 78; RESP 17; TEMP 36.6; O2SAT 92
[2020-03-15] MEDS: Nystatin Powder 15gm Bottle 1 APPLIC TOPICAL ×2 (06:16→17:53)
[2020-03-15] MEDS: Ciprofloxacin 400 MG/200 ML BAG 200 MG IV ×2 (06:16→17:53)
[2020-03-15] MEDS: dexAMETHasone 4 MG Tablet 6 MG PO (06:16)
[2020-03-15] MEDS: APIXABAN 5 MG TABLET PO ×2 (06:17→17:53)
[2020-03-15] MEDS: Pantoprazole Sodium 40 MG Tablet PO ×2 (06:17→17:53)
[2020-03-15] MEDS: Umeclidinium Bromide Inhaler 1 PUFF IH (06:18)
[2020-03-15] MEDS: Fluticasone/Salmeterol 232-14 Inhaler 1 PUFF IH ×2 (06:18→17:52)
[2020-03-15 06:22] VITALS: PULSE 80
[2020-03-15] MEDS: Metoprolol(XL)Succ 25 MG Tablet PO (06:22)
[2020-03-15 07:09] LABS: Absolute Lymphocyte Count 2.42 X10^3/uL (0.83-4.51); Absolute Neutrophil Count 6.8 X10^3/uL (2.0-7.7); Basophil# 0.01 X10^3/uL; Basophil% 0.1 % (0-1); Eosinophil# 0.01 X10^3/uL; Eosinophils% 0.1 % (0-5); Hematocrit 35.3 % (37-47); Hemoglobin 11.3 g/dL (12.0-15.0); Lymphocyte # 2.42 X10^3/ul (4.0); Lymphocyte % 24.4 % (19-41); Mean Corpuscular Hgb 28.7 pg (27.0-32.0); Mean Corpuscular Volume 89.6 fL (81-99); Mean Platelet Vol. 8.5 fl (6.2-12.0); Monocyte# 0.61 X10^3/uL; Monocyte% 6.1 % (0-10); NRBC Flagged by Analyzer 0 % (0-5); Neutrophil # 6.78 X10^3/uL (2.7-7.7); Neutrophil % 68.3 % (47-70); Platelet Count 273 K/mm3 (150-450); RBC Distribution Width CV 15.8 % (11.6-14.6); RBC Distribution Width SD 51.8 fl (35.1-43.9); Red Blood Count 3.94 M/mm3 (4.2-5.4); White Blood Count 9.9 K/mm3 (4.4-11.0)
[2020-03-15 07:29] LABS: Anion Gap 4 (5-15); BUN 27 mg/dL (7-18); BUN/Creat Ratio 36.3 RATIO (10-20); Calcium,Total 8.4 mg/dL (8.5-10.1); Chloride 100 mmol/L (98-107); Creatinine, Serum 0.74 mg/dL (0.55-1.02); EST Glomerular Filtration Rate 79 mL/min (>60); Est Glom Filt Rate - Afr Amer 96 mL/min (>60); Estimated Creatinine Clearance 32.17 ml/min; Glucose 126 mg/dL (74-106); Sodium Level 132 mmol/L (136-145)
[2020-03-15] MEDS: Acetaminophen 500 MG Tablet 1000 MG PO (14:21)
[2020-03-15 16:00] VITALS: BP 106/61; PULSE 59; RESP 18; TEMP 36.6; O2SAT 95
[2020-03-15 16:32] VITALS: PULSE 59; RESP 18; O2SAT 95
[2020-03-15] MEDS: 0.9% Saline Lock 10 ML Syringe IV (18:01)
[2020-03-16 05:02] VITALS: BP 142/72; PULSE 55; RESP 16; TEMP 36.8; O2SAT 95
[2020-03-16] MEDS: Ciprofloxacin 400 MG/200 ML BAG 200 MG IV ×2 (05:07→18:15)
[2020-03-16] MEDS: 0.9% Saline Lock 10 ML Syringe IV ×2 (05:07→18:16)
[2020-03-16] MEDS: Umeclidinium Bromide Inhaler 1 PUFF IH (05:12)
[2020-03-16] MEDS: APIXABAN 5 MG TABLET PO ×2 (05:13→18:27)
[2020-03-16] MEDS: Pantoprazole Sodium 40 MG Tablet PO ×2 (05:14→18:27)
[2020-03-16] MEDS: Fluticasone/Salmeterol 232-14 Inhaler 1 PUFF IH ×2 (05:14→18:26)
[2020-03-16 05:15] VITALS: BP 142/72; PULSE 55
[2020-03-16] MEDS: Metoprolol(XL)Succ 25 MG Tablet PO (05:15)
[2020-03-16] MEDS: Nystatin Powder 15gm Bottle 1 APPLIC TOPICAL ×2 (05:15→18:28)
[2020-03-16 14:58] VITALS: BP 109/56; PULSE 64; RESP 18; TEMP 36.6; O2SAT 94
[2020-03-16] MEDS: 0.9% Normal Saline 250 ML IV.SOLN. IV (18:16)
[2020-03-16] MEDS: Acetaminophen 500 MG Tablet 1000 MG PO (18:34)
[2020-03-16] MEDS: MELATONIN 10 MG TABLET PO (20:29)
[2020-03-16] MEDS: NYSTATIN 500,000 UNIT/5 ML UDC 500000 UNIT PO (20:30)
[2020-03-17] MEDS: Acetaminophen 500 MG Tablet 1000 MG PO (00:03)
[2020-03-17 04:56] VITALS: BP 126/57; PULSE 50; RESP 18; TEMP 36.8; O2SAT 99
[2020-03-17] MEDS: Fluticasone/Salmeterol 232-14 Inhaler 1 PUFF IH ×2 (05:01→18:03)
[2020-03-17] MEDS: Umeclidinium Bromide Inhaler 1 PUFF IH (05:01)
[2020-03-17] MEDS: NYSTATIN 500,000 UNIT/5 ML UDC 500000 UNIT PO ×4 (05:02→21:03)
[2020-03-17] MEDS: Pantoprazole Sodium 40 MG Tablet PO ×2 (05:02→18:02)
[2020-03-17] MEDS: APIXABAN 5 MG TABLET PO ×2 (05:02→18:03)
[2020-03-17] MEDS: Nystatin Powder 15gm Bottle 1 APPLIC TOPICAL (05:03)
[2020-03-17 05:04] VITALS: BP 126/57; PULSE 50
[2020-03-17] MEDS: Metoprolol(XL)Succ 25 MG Tablet PO (05:04)
[2020-03-17 11:49] VITALS: PULSE 63; RESP 18; O2SAT 93
[2020-03-17 13:58] VITALS: BP 130/62; PULSE 63; RESP 14; TEMP 36.6; O2SAT 93
--- NOTE | 2020-03-17 15:45 | NURSING ---
wound photo: abdomen
--- NOTE | 2020-03-17 15:46 | NURSING ---
wound photo: bilateral buttocks
[2020-03-17] MEDS: 0.9% Saline Lock 10 ML Syringe IV (15:58)
--- NOTE | 2020-03-17 16:42 | NURSING ---
Called to update daughter on pt status and to get a date & time that would work for a virtual drsg change teaching session for discharge. Daughter concerned about dressing changes being twice a day as well as pt still having a christine in place. is not able to manage this & daughter works Fulltime. Daughter mentioned pt going to longterm for a little while until buttocks is healed. KATHERINE Jose updated and will call daughter to discuss discharge planning.
[2020-03-17] MEDS: Senna/Docusate Sodium 1 Tablet PO (18:02)
[2020-03-17] MEDS: MELATONIN 10 MG TABLET PO (21:03)
[2020-03-18 05:57] VITALS: BP 151/67; PULSE 76; RESP 16; TEMP 36.6; O2SAT 93
[2020-03-18 05:59] VITALS: BP 151/67; PULSE 76
[2020-03-18] MEDS: Pantoprazole Sodium 40 MG Tablet PO ×2 (05:59→17:07)
[2020-03-18] MEDS: Metoprolol(XL)Succ 25 MG Tablet PO (05:59)
[2020-03-18] MEDS: APIXABAN 5 MG TABLET PO ×2 (06:00→17:07)
[2020-03-18] MEDS: Fluticasone/Salmeterol 232-14 Inhaler 1 PUFF IH ×2 (06:01→17:07)
[2020-03-18] MEDS: NYSTATIN 500,000 UNIT/5 ML UDC 500000 UNIT PO ×4 (06:02→20:53)
[2020-03-18] MEDS: Nystatin Powder 15gm Bottle 1 APPLIC TOPICAL ×2 (06:02→17:07)
[2020-03-18] MEDS: Umeclidinium Bromide Inhaler 1 PUFF IH (07:42)
--- NOTE | 2020-03-18 08:21 | PN_ITS ---
Subjective: Resident seen and examined for regulatory visit. She is in good spirits. She is feeling better after COVID-19 infection, she is doing well with therapy, and would like to go home as soon as possible, she has no new complaints. Vitals/I&O's: Vital Signs Temp Pulse Resp BP Pulse Ox 97.8 F 76 16 151/67 H 93 03/18/20 05:57 03/18/20 05:59 03/18/20 05:57 03/18/20 05:59 03/18/20 05:57 Oxygen Flow Rate (L/min) 3 Oxygen Delivery Method Room Air Weight: 70.2 kg Body Mass Index (BMI) 30.5 Intake and Output for Last 24 Hours 03/16/20 03/17/20 03/18/20 23:59 23:59 23:59 Intake Total 1000 / 1000 480 / 480 Output Total 1100 / 1100 1550 / 1550 600 / 600 Balance -100 / -100 -1070 / -1070 -600 / -600 Past Medical History Past Medical History (Chronic Problems): Chronic Problems Chronic obstructive pulmonary disease (Chronic) Hypertension (Chronic) Allergies No Known Allergies Allergy (Verified 02/22/20 13:24) Home Medications: Ambulatory Orders Medication Instructions Recorded Acetaminophen [Non-Aspirin] 650 mg PO Q6H PRN 02/22/20 Albuterol Aerosols [Ventolin 2.5 mg INHALATION Q4HWA.RT PRN 02/22/20 Aerosols] Albuterol IH (ProAir) [Proair Hfa 2 puff INHALATION Q6H PRN PRN 02/22/20 (SP)Vent Pts] Amoxicillin/Potassium Clav 1 ea PO BID 02/22/20 [Amox-Clav 875-125 mg Tablet] Apixaban [Eliquis] 5 mg PO BID 02/22/20 Aspirin [Aspirin EC] 81 mg PO DAILY 02/22/20 Fluticasone 0.05% [Flonase Nasal 2 spray NASAL DAILY 02/22/20 [place]] Fluticasone/Umeclidin/Vilanter 1 ea IH DAILY 02/22/20 [Trelegy Ellipta 200-62.5-25] L. Acidophilus/L.bulgaricus 1 ea PO BID 02/22/20 [Lactobacillus Tablet] Metoprolol Succinate [Toprol Xl] 25 mg PO DAILY 02/22/20 Oxyquinoline-Na Lauryl Sulfate 0.025 % VAGINAL DAILY 02/22/20 Pantoprazole Sodium [Protonix] 40 mg PO BID 02/22/20 Potassium Chloride [Klor-Con M20] 20 meq PO BID 02/22/20 Sulfamethoxazole/Trimethoprim 1 ea PO BID 02/22/20 [Bactrim Ds Tablet] Surgical History: appendectomy, cataract - OD., cholecystectomy, colectomy - Partial., - - Ostomy, incision & drainage buttock abscess, tubal ligation. Psychiatric History: No pertinent psych hx LEGAL AIDE History: No pertinent LEGAL AIDE history Lives: Spouse/ Significant Other Smoking Status: Former smoker Tobacco Use: Non-smoker Alcohol: Occasional - 1 beer per day. Drugs: None - *Family History Maternal History Items: Diabetes, Heart Disease Capacity - Capacity Assessment Tool Can the patient make a choice & communicate that choice?: Yes Can the patient understand benefits, risks and alternatives?: Yes Can the patient make a logical, rational choice?: Yes Is the choice the patient makes consistent w/ their values?: Yes Is there an impending, emergent risk to the patient?: No Does the patient have an Advance Directive?: Yes Is there a Surrogate Available?: Yes i.e. HCPOA: Yes i.e. close relative (spouse, child, parent, sibling)?: Yes Review of Systems Constitutional: Denies: Chills, Fever, Weight Change HEENT: Denies: Head Aches, Sinus Congestion, Sinus Drainage Cardiovascular: Denies: Chest Pain, Palpitations Respiratory: Denies: Cough, Shortness of breath at rest, Sputum production Gastrointestinal: Denies: Abdominal Pain, Nausea, Vomiting Genitourinary: Denies: Dysuria Musculoskeletal: Denies: Joint Pain, Joint Tenderness Skin: Denies: Rash, Wounds Neurological: Denies: Numbness, Tingling, Focal weakness Psychiatric: Denies: Anxiety, Depression, Homicidal Ideations, Suicidal Ideations Hematologic/ Lymphatic: Denies: Easy Bruising, Easy Bleeding Patient Problems: Active and Suspected Problems Debility (Acute) Cellulitis and abscess of buttock (Acute) Pulmonary embolism (Acute) Acute respiratory failure (Acute) Hyponatremia (Acute) Hypokalemia (Acute) Anemia (Acute) COVID-19 (Acute) - Physical Exam Vitals/I&O's: Vital Signs Temp Pulse Resp BP Pulse Ox 97.8 F 76 16 151/67 H 93 03/18/20 05:57 03/18/20 05:59 03/18/20 05:57 03/18/20 05:59 03/18/20 05:57 Oxygen Flow Rate (L/min) 3 Oxygen Delivery Method Room Air Weight: 70.2 kg Body Mass Index (BMI) 30.5 Intake and Output for Last 24 Hours 03/16/20 03/17/20 03/18/20 23:59 23:59 23:59 Intake Total 1000 / 1000 480 / 480 Output Total 1100 / 1100 1550 / 1550 600 / 600 Balance -100 / -100 -1070 / -1070 -600 / -600 General: Alert, Oriented x3, Cooperative HEENT: Atraumatic, PERRLA, EOMI, Normocephalic Neck: Supple, No JVD, Negative Carotid Bruits Lungs: Clear to auscultation, Normal air movement Cardiovascular: Regular rate, No murmurs Abdomen: Bowel Sounds Present, Soft, Non Tender, - - Indwelling Luna Catheter. Extremities: No edema, Capillary Refill Less than 3 Seconds Skin: No rashes, No breakdown Musculoskeletal: No Tenderness to Palpation of Joints or Extremities Neurological: Cranial nerves II-XII grossly intact Psych/Mental Status: Normal Affect, Appropriate Current Medications Acetaminophen (Acetaminophen 500 Mg Tablet) 1,000 mg PO Q6H PRN PRN Reason: Pain Score 1-10 Last Admin: 03/17/20 00:03 Dose: 1,000 mg Documented by: Albuterol Sulfate (Albuterol Sulfate 8 Gm Inhaler (60 Puffs)) 2 puff INHALATION Q4H PRN PRN PRN Reason: SOB &/OR WHEEZING Last Admin: 03/08/20 12:42 Dose: 2 inhaler Documented by: Apixaban (Apixaban 5 Mg Tablet) 5 mg PO BID [facility]STINE Stop: 08/22/20 23:59 Last Admin: 03/18/20 06:00 Dose: 5 mg Documented by: Bisacodyl (Bisacodyl 10 Mg Suppository) 10 mg RECTAL DAILY PRN PRN Reason: Constipation Fluticasone Propionate (Fluticasone 0.05% 1 [place] Nasal.Sry) 2 spray NASAL DAILY [facility] Last Admin: 03/18/20 05:56 Dose: Not Given Documented by: Hydrocortisone (Hydrocortisone 2.5% Crm) 1 applic TOPICAL BID PRN PRN; Protocol PRN Reason: RASH/TOPICAL IRRITATION Last Admin: 03/11/20 03:59 Dose: 1 applicatio Documented by: Sodium Chloride () 250 mls @ 15 mls/hr IV .[id number] PRN PRN Reason: Saline Flush Sodium Chloride () 250 mls @ 15 mls/hr IV .[id number] PRN PRN Reason: Additional IVPB Infusion Magnesium Hydroxide (Magnesium Hydroxide 30 Ml Udc) 30 ml PO DAILY PRN PRN Reason: Constipation Melatonin (Melatonin 10 Mg Tablet) 10 mg PO QHS [facility] Last Admin: 03/17/20 21:03 Dose: 10 mg Documented by: Metoprolol Succinate (Metoprolol(Xl)Succ 25 Mg Tablet) 25 mg PO DAILY [facility] Last Admin: 03/18/20 05:59 Dose: 25 mg Documented by: Nutritional Formula (Nutritional Supplement (Erick) Packet) 1 packet PO BIDCM [facility] Last Admin: 03/18/20 07:45 Dose: 1 packet Documented by: Nystatin (Nystatin Powder 15gm Bottle) 1 applic TOPICAL BID [facility]; Protocol Last Admin: 03/18/20 06:02 Dose: 1 applicatio Documented by: Nystatin (Nystatin 500,000 Unit/5 Ml Udc) 500,000 unit PO 4X/DAY [facility] Stop: 03/26/20 22:01 Last Admin: 03/18/20 06:02 Dose: 500,000 unit Documented by: Pantoprazole Sodium (Pantoprazole Sodium 40 Mg Tablet) 40 mg PO BID [facility] Last Admin: 03/18/20 05:59 Dose: 40 mg Documented by: Polyethylene Glycol (Polyethylene Glycol 3350 17 Gm Packet) 17 gm PO DAILY [facility] Last Admin: 03/18/20 06:01 Dose: Not Given Documented by: Potassium Chloride (Potassium Chloride 20 Meq Tablet) 20 meq PO BIDCM [facility] Last Admin: 03/18/20 07:45 Dose: 20 meq Documented by: Fluticasone/Salmeterol (Fluticasone/Salmeterol 232-14 Inhaler) 1 puff IH BID [facility] Last Admin: 03/18/20 06:01 Dose: 1 puff Documented by: Senna/Docusate Sodium (Senna/Docusate Sodium 1 Tablet) 1 tablet PO BID [facility] Last Admin: 03/18/20 06:02 Dose: Not Given Documented by: Sodium Chloride (0.9% Saline Lock 10 Ml Syringe) 10 - 40 ml IV UD PRN PRN Reason: SALINE FLUSH Last Admin: 03/17/20 15:58 Dose: 10 ml Documented by: Sodium Chloride (0.9% Normal Saline 250 Ml Iv.Soln.) 250 ml IV DAILY PRN PRN Reason: IVPB Last Admin: 03/16/20 18:16 Dose: 250 ml Documented by: Umeclidinium [place] (Umeclidinium [place] Inhaler) 1 puff IH DAILY [facility] Last Admin: 03/18/20 07:42 Dose: 1 puff Documented by: Assessment/Plan All Active Problems Debility (Acute) Cellulitis and abscess of buttock (Acute) Pulmonary embolism (Acute) Acute respiratory failure (Acute) Hyponatremia (Acute) Hypokalemia (Acute) Anemia (Acute) COVID-19 (Acute) 84 year old female with below past medical history hospitalized for cellulitis/abscess of buttock, underwent incision & drainage, complicated by acute respiratory failure secondary to pulmonary embolism, bleeding secondary to anticoagulation requiring IVC filter placement, admitted to TCU with debility, here for rehabilitation, strengthening, wound care, prior to discharge home with . * Debility - PT/OT. * Pain - Tylenol 1000MG Q6H PRN pain (1-10). * Bowel - Miralax 17GM daily, Senna/colace 1 tablet BID, MOM 30ML daily PRN, Dulcolax 10MG IN daily PRN. * Adult immunization - Administer Prevnar 13, Pneumovax 23, Fluzone as appropriate. * DVT prophylaxis - Not necessary, already on Eliquis. * COVID-19 - Positive 03/03/20, appreciate Dr. Chisholm's help, resident treated with Remdesivir, Dexamethasone, oxygen, recovered. Unable to give Bamlanivimab due to resident's oxygen requirement. * P. Aeruginosa UTI - Urine culture 03/11/2020, treated with IV Cipro, encephalopathy resolved. * Thrush - Nystatin 500,000 swish and swallow QID thru 03/26/2020. * COPD - Advair 232-14 1 puff BID, Umeclidinium 1 puff daily, Albuterol MDI 2 puffs Q6H PRN. * Cellulitis of buttock - Augmentin 875MG BID thru 02/25/20, Bactrim DS 1 tablet BID thru 02/25/20. * Pulmonary embolism - Eliquis 5MG BID thru 08/23/19. * Allergic Rhinitis - Flonase 2 spray nasal daily. * GI prophylaxis - Lactobacillus 1 tablet BID thru 02/29/20. * Hypertension - Metoprolol succinate 25MG daily. * GERD - Pantoprazole 40MG BID. * Hypokalemia - KCL 20MEQ BID. * Nutrition - Erick 1 packet BID. * Buttock wound - Consult Wound nurse. * Rash - Hytone 2.5% cream topical BID. * Tinea Corporis - Nystatin powder topical BID.
--- NOTE | 2020-03-18 10:22 | CASEMGMT ---
Social Work Spoke with dtr about concerns with wound dressing changes x2 daily. Dtr stated she provided care for colostomy to pt prior because her dad is unable to, but that was less times to change it, and she lives 20-30 mins away. Brainstormed other options with dtr. [facility] nurse will only be out about 2-3 times a week and only once daily. SW could look into pt coming to wound clinic for dressing change, but again that could not be twice daily or daily and they live in [place], so that is not convenient for pt. Discussed paying privately at SNF if insurance cuts - dtr stated they cannot afford daily rate. Dtr still wanting to learn and see the wound. SW will coordinate with nursing for video call to visually see dressing change. Insurance update this date and continued stay is not guaranteed. Requesting additional time for further wound healing and/or to more manageable dressing changes in the home. Will continue to follow. Rebeca Ricketts, MARCO ANTONIO HAYESW
--- NOTE | 2020-03-18 11:30 | NURSING ---
Daughter educated on wound dressing via REMOTV today. Explained procedure and products used. Daughter denied further questions and stated she felt comfortable with completing the dressing change.
[2020-03-18 13:39] VITALS: BP 124/68; PULSE 90; RESP 16; TEMP 36.3; O2SAT 95
--- NOTE | 2020-03-18 14:19 | NURSING ---
Patient educated on ostomy care and proper emptying and cleaning of application.
[2020-03-18] MEDS: 0.9% Saline Lock 10 ML Syringe IV (17:16)
[2020-03-18] MEDS: MELATONIN 10 MG TABLET PO (20:51)
[2020-03-19 05:09] VITALS: BP 107/43; PULSE 70; RESP 18; TEMP 36.4; O2SAT 95
[2020-03-19 05:18] VITALS: PULSE 70
[2020-03-19] MEDS: APIXABAN 5 MG TABLET PO ×2 (05:18→17:40)
[2020-03-19] MEDS: Pantoprazole Sodium 40 MG Tablet PO ×2 (05:18→17:40)
[2020-03-19] MEDS: Metoprolol(XL)Succ 25 MG Tablet PO (05:18)
[2020-03-19] MEDS: Nystatin Powder 15gm Bottle 1 APPLIC TOPICAL ×2 (05:21→17:45)
[2020-03-19] MEDS: Fluticasone/Salmeterol 232-14 Inhaler 1 PUFF IH ×2 (05:30→17:41)
[2020-03-19] MEDS: Umeclidinium Bromide Inhaler 1 PUFF IH (05:31)
[2020-03-19] MEDS: NYSTATIN 500,000 UNIT/5 ML UDC 500000 UNIT PO ×4 (05:32→21:32)
[2020-03-19] MEDS: 0.9% Saline Lock 10 ML Syringe IV (06:54)
--- NOTE | 2020-03-19 08:05 | CASEMGMT ---
Social Work Attempted to call dtr twice for DC plans but voicemail is full. Will continue to attempt. Rebeca Ricketts, [employer] MANAGER MOVERS
[2020-03-19 13:38] VITALS: BP 115/54; PULSE 87; RESP 16; TEMP 36.6; O2SAT 95
--- NOTE | 2020-03-19 14:19 | NURSING ---
DRESSING CHANGED TO BUTTOCKS PER ORDER, ABDOMEN LEFT MOODY, HEALED. COLOSTOMY EMPTIED OF THICK, PASTY STOOL. THERAPY IN TO WORK WITH PT.
[2020-03-19 14:38] VITALS: PULSE 82; RESP 18; O2SAT 96
--- NOTE | 2020-03-19 14:55 | CASEMGMT ---
Social Work PRISCILLA contacted KATHERINE. Discussed DC plans as insurance LCD 03/21, DC 03/22. Explained wound nurse spoke with whom okayed daily dressing changes if needed. SW can order HHC to assist with the 2x/wk for the days the dtr is working. Offered to schedule a day at the wound center - PRISCILLA stated that won't be necessary, dtr can assist. PRISCILLA requested hospital bed. [place] [facility] [place] to [facility] for PT/OT/SN. They will notify if unable to accept. Family to transport. Plan: DC home with and dtr/PRISCILLA support 03/22, [facility] PT/OT/SN, [facility] - hosp. bed Rebeca Ricketts, MANAGER HUMAN RESOURCES PROFESSIONAL APPLICATION DESIGNER
[2020-03-19] MEDS: MELATONIN 10 MG TABLET PO (21:32)
[2020-03-20 05:47] VITALS: BP 103/45; PULSE 74; RESP 18; TEMP 36.7; O2SAT 96
[2020-03-20] MEDS: Umeclidinium Bromide Inhaler 1 PUFF IH (05:49)
[2020-03-20] MEDS: Fluticasone/Salmeterol 232-14 Inhaler 1 PUFF IH ×2 (05:49→18:16)
[2020-03-20 05:50] VITALS: BP 103/45; PULSE 74
[2020-03-20] MEDS: Metoprolol(XL)Succ 25 MG Tablet PO (05:50)
[2020-03-20] MEDS: Nystatin Powder 15gm Bottle 1 APPLIC TOPICAL ×2 (05:50→18:18)
[2020-03-20] MEDS: APIXABAN 5 MG TABLET PO ×2 (05:50→18:17)
[2020-03-20] MEDS: Pantoprazole Sodium 40 MG Tablet PO ×2 (05:50→18:17)
[2020-03-20] MEDS: NYSTATIN 500,000 UNIT/5 ML UDC 500000 UNIT PO ×4 (05:51→22:51)
--- NOTE | 2020-03-20 08:22 | DCINST_ITS ---
- Discharge Diagnoses Current Active Problems: Current Active and Chronic Problems Debility (Acute) Cellulitis and abscess of buttock (Acute) Pulmonary embolism (Acute) Acute respiratory failure (Acute) Chronic obstructive pulmonary disease (Chronic) Hypertension (Chronic) Hyponatremia (Acute) Hypokalemia (Acute) Anemia (Acute) COVID-19 (Acute) You will use the following diet at home:: No restrictions, Regular Your food should be the consistency of: Regular Your liquids should be the consistency of: Regular/Thin Discharge Activity: Return to Normal Activity, May Shower, Use Walker Weight Bearing Status: Weight bearing as tolerated Call your doctor if you observe: Fever of 101 or Higher, Inability to urinate, Inability to have a bowel movement, Shortness of breath, Chest pain, Uncontr olled pain Allergies/Adverse Reactions: Allergies No Known Allergies Allergy (Verified 02/22/20 13:24) Medications to take at Discharge Fluticasone/Umeclidin/Vilanter [Trelegy Ellipta 200-62.5-25] 1 ea IH DAILY 02/22/20 Metoprolol Succinate [Toprol Xl] 25 mg PO DAILY 02/22/20 Acetaminophen [Tylenol] 1,000 mg PO Q6H PRN tablet 03/20/20 Apixaban [Eliquis] 5 mg PO BID #60 tab 03/20/20 Melatonin 10 mg PO QHS tablet 03/20/20 Nutritional Supplement [Erick - [place]] 1 packet PO BIDCM #60 packet 03/20/20 Nystatin Powder [Mycostatin Powder] 1 applic TOPICAL BID bottle 03/20/20 Pantoprazole Sodium [Protonix] 40 mg PO BID #60 tab 03/20/20 Potassium Chloride [Klor-Con M20] 20 meq PO BID #60 03/20/20 The following prescriptions were given: Apixaban [Eliquis] 5 mg PO BID #60 tab Transmission Status: Pending to [id number] Nutritional Supplement [Erick - [place]] 1 packet PO BIDCM #60 packet Transmission Status: Pending to [id number] Potassium Chloride [Klor-Con M20] 20 meq PO BID #60 Pantoprazole Sodium [Protonix] 40 mg PO BID #60 tab Transmission Status: Pending to [id number] Primary Care Physician: Soraya Elliott DO [Primary Care Provider] - Please follow up with your Primary Care Physician in: 1 week. Test Results: Test results from this visit will be discussed in further detail at your follow- up appointment, if applicable. Please Follow Up With: Uche Joya When: [phone] Please Follow Up With: Dalton Vernon When: [phone] Please Follow Up With: Chaka Ruelas MD When: [phone] Proposed Discharge Date: 03/22/20
--- NOTE | 2020-03-20 08:23 | DS.PCM_ITS ---
Discharge Date and Diagnosis - Problem List Patient Problems: Active and Suspected Problems Debility (Acute) Cellulitis and abscess of buttock (Acute) Pulmonary embolism (Acute) Acute respiratory failure (Acute) Hyponatremia (Acute) Hypokalemia (Acute) Anemia (Acute) COVID-19 (Acute) Date of Admission: 02/22/20 Date of Discharge: 03/22/20 - Primary Discharge Diagnosis Acute Problems: Active Problems Debility (Acute) Cellulitis and abscess of buttock (Acute) Pulmonary embolism (Acute) Acute respiratory failure (Acute) Hyponatremia (Acute) Hypokalemia (Acute) Anemia (Acute) COVID-19 (Acute) - Secondary Discharge Diagnosis Chronic Problems: Chronic Problems Chronic obstructive pulmonary disease (Chronic) Hypertension (Chronic) Hospital Course and Treatment Imaging Results: 02/22/20 12:01 Diet: Regular - General Food consistency:: Regular Liquid Consistency:: Regular/Thin Is pt able to select menu?: Yes Clinical Impression(s) from Imaging Studies Chest X-Ray 03/11/20 18:25 IMPRESSION: Limited inspiration. Mild bibasilar atelectasis versus early infiltrate. Electronically Signed: Chuck Loco DO at 19:33 EST Tel [phone], Service support , Consultations 02/22/20 13:13 Consult: Onc/Wound/head bone grinder Routine Comment: Reason for Consult:: colostomy and bila buttock abscess & abdominal incisions Operations: None Procedures: None Summary of Care Provided: The patient is a 84 year old Female with below past medical history hospitalized for cellulitis/abscess of buttock, underwent incision & drainage, complicated by acute respiratory failure secondary to pulmonary embolism, bleeding secondary to anticoagulation requiring IVC filter placement, admitted to TCU with debility, here for rehabilitation, strengthening, wound care, prior to discharge home with . Eliquis stop date 08/22/2020. 03/03/20 COVID-19 positive, treated with Remdesivir, Dexamethasone, oxygen, recovered. 03/11/20 P. Aeruginosa urinary tract infection with Levaquin, resolved. Discharge home with , daughter/son-in-law support, [facility] Care PT/OT/SN, [facility] Bed. Patient Problems: Active and Suspected Problems Debility (Acute) Cellulitis and abscess of buttock (Acute) Pulmonary embolism (Acute) Acute respiratory failure (Acute) Hyponatremia (Acute) Hypokalemia (Acute) Anemia (Acute) COVID-19 (Acute) - Physical Exam Vitals/I&O's: Vital Signs Temp Pulse Resp BP Pulse Ox 98.1 F 74 18 103/45 L 96 03/20/20 05:47 03/20/20 05:50 03/20/20 05:47 03/20/20 05:50 03/20/20 05:47 Oxygen Flow Rate (L/min) 3 Oxygen Delivery Method Room Air Weight: 68.748 kg Body Mass Index (BMI) 30.5 Intake and Output for Last 24 Hours 03/18/20 03/19/20 03/20/20 23:59 23:59 23:59 Intake Total 720 / 720 720 / 720 Output Total 1050 / 1050 1000 / 1000 850 / 850 Balance -330 / -330 -280 / -280 -850 / -850 Current Medications Acetaminophen (Acetaminophen 500 Mg Tablet) 1,000 mg PO Q6H PRN PRN Reason: Pain Score 1-10 Last Admin: 03/17/20 00:03 Dose: 1,000 mg Documented by: Albuterol Sulfate (Albuterol Sulfate 8 Gm Inhaler (60 Puffs)) 2 puff INHALATION Q4H PRN PRN PRN Reason: SOB &/OR WHEEZING Last Admin: 03/08/20 12:42 Dose: 2 inhaler Documented by: Apixaban (Apixaban 5 Mg Tablet) 5 mg PO BID [facility] Stop: 08/22/20 23:59 Last Admin: 03/20/20 05:50 Dose: 5 mg Documented by: Bisacodyl (Bisacodyl 10 Mg Suppository) 10 mg RECTAL DAILY PRN PRN Reason: Constipation Fluticasone Propionate (Fluticasone 0.05% 1 [place] Nasal.Sry) 2 spray NASAL DAILY [facility] Last Admin: 03/20/20 05:50 Dose: Not Given Documented by: Hydrocortisone (Hydrocortisone 2.5% Crm) 1 applic TOPICAL BID PRN PRN; Protocol PRN Reason: RASH/TOPICAL IRRITATION Last Admin: 03/11/20 03:59 Dose: 1 applicatio Documented by: Sodium Chloride () 250 mls @ 15 mls/hr IV .[id number] PRN PRN Reason: Saline Flush Sodium Chloride () 250 mls @ 15 mls/hr IV .[id number] PRN PRN Reason: Additional IVPB Infusion Magnesium Hydroxide (Magnesium Hydroxide 30 Ml Udc) 30 ml PO DAILY PRN PRN Reason: Constipation Melatonin (Melatonin 10 Mg Tablet) 10 mg PO QHS [facility] Last Admin: 03/19/20 21:32 Dose: 10 mg Documented by: Metoprolol Succinate (Metoprolol(Xl)Succ 25 Mg Tablet) 25 mg PO DAILY [facility] Last Admin: 03/20/20 05:50 Dose: 25 mg Documented by: Nutritional Formula (Nutritional Supplement (Erick) Packet) 1 packet PO BIDCM [facility] Last Admin: 03/19/20 17:39 Dose: Not Given Documented by: Nystatin (Nystatin Powder 15gm Bottle) 1 applic TOPICAL BID [facility]; Protocol Last Admin: 03/20/20 05:50 Dose: 1 applicatio Documented by: Nystatin (Nystatin 500,000 Unit/5 Ml Udc) 500,000 unit PO 4X/DAY [facility] Stop: 03/26/20 22:01 Last Admin: 03/20/20 05:51 Dose: 500,000 unit Documented by: Pantoprazole Sodium (Pantoprazole Sodium 40 Mg Tablet) 40 mg PO BID [facility] Last Admin: 03/20/20 05:50 Dose: 40 mg Documented by: Polyethylene Glycol (Polyethylene Glycol 3350 17 Gm Packet) 17 gm PO DAILY [facility] Last Admin: 03/20/20 05:51 Dose: Not Given Documented by: Potassium Chloride (Potassium Chloride 20 Meq Tablet) 20 meq PO BIDCM [facility] Last Admin: 03/19/20 17:45 Dose: Not Given Documented by: Fluticasone/Salmeterol (Fluticasone/Salmeterol 232-14 Inhaler) 1 puff IH BID [facility] Last Admin: 03/20/20 05:49 Dose: 1 puff Documented by: Senna/Docusate Sodium (Senna/Docusate Sodium 1 Tablet) 1 tablet PO BID [facility] Last Admin: 03/20/20 05:51 Dose: Not Given Documented by: Sodium Chloride (0.9% Saline Lock 10 Ml Syringe) 10 - 40 ml IV UD PRN PRN Reason: SALINE FLUSH Last Admin: 03/19/20 06:54 Dose: 10 ml Documented by: Sodium Chloride (0.9% Normal Saline 250 Ml Iv.Soln.) 250 ml IV DAILY PRN PRN Reason: IVPB Last Admin: 03/16/20 18:16 Dose: 250 ml Documented by: Umeclidinium [place] (Umeclidinium [place] Inhaler) 1 puff IH DAILY [facility] Last Admin: 03/20/20 05:49 Dose: 1 puff Documented by: Discharge Diet: No Restrictions Discharge Activity: Return to Normal Activity, May Shower, Use Walker Weight Bearing Status: Weight bearing as tolerated Call your doctor if you observe: Fever of 101 or Higher, Inability to urinate, Inability to have a bowel movement, Shortness of breath, Chest pain, Uncontrolled pain Home Medications: Medications to take at Discharge Fluticasone/Umeclidin/Vilanter [Trelegy Ellipta 200-62.5-25] 1 ea IH DAILY 02/22/20 Metoprolol Succinate [Toprol Xl] 25 mg PO DAILY 02/22/20 Acetaminophen [Tylenol] 1,000 mg PO Q6H PRN tablet 03/20/20 Apixaban [Eliquis] 5 mg PO BID #60 tab 03/20/20 Melatonin 10 mg PO QHS tablet 03/20/20 Nutritional Supplement [Erick - [place]LAVOR] 1 packet PO BIDCM #60 packet 03/20/20 Nystatin Powder [Mycostatin Powder] 1 applic TOPICAL BID bottle 03/20/20 Pantoprazole Sodium [Protonix] 40 mg PO BID #60 tab 03/20/20 Potassium Chloride [Klor-Con M20] 20 meq PO BID #60 03/20/20 Following Prescriptions Were Given to Patient: Apixaban [Eliquis] 5 mg PO BID #60 tab Transmission Status: Pending to [facility]/pharmacy #[id number] Nutritional Supplement [Erick - [place] FLAVOR] 1 packet PO BIDCM #60 packet Transmission Status: Pending to [facility]/pharmacy #[id number] Potassium Chloride [Klor-Con M20] 20 meq PO BID #60 Pantoprazole Sodium [Protonix] 40 mg PO BID #60 tab Transmission Status: Pending to [facility]/pharmacy #[id number] Primary Care Physician: Soraya Elliott DO [Primary Care Provider] - Please follow up with your Primary Care Physician in: 1 week. Please Follow Up With: Uche Joya When: [phone] Please Follow Up With: Dalton Vernon When: [phone] Please Follow Up With: Chaka Ruelas MD When: [phone] Disposition: Home with Home Health Minutes spent on discharge:: 35 Patient Condition:: Stable Medical Necessity - Tobacco Use Smoking Status: Former smoker Tobacco Use: Non-smoker Meaningful Use Info Meaningful Use Diagnoses (Choose all that apply): None applicable
[2020-03-20 13:48] VITALS: BP 86/52; PULSE 79; RESP 18; TEMP 35.7; O2SAT 92
[2020-03-20 14:00] VITALS: BP 110/57; PULSE 73
--- NOTE | 2020-03-20 14:38 | NURSING ---
Changed the ostomy appliance again with the patient. Pt states I will eventually learn how to do the whole thing. Kept pattern for patient to take home in order to cut the opening to size. stoma is oval in shape. peristomal skin is intact. Daughter was assisting pt with appliance changes prior to pt coming to TCU. Since pt will now have home health care, the nurses can also reinforce the teaching with the patient and assist her in changing the appliance again. Pt does seem forgetful at times. pt reminded to empty the appliance when it gets approx 1/3. Pt denies further questions at this time. there are extra appliances for pt to take home and pt already has some supplies at home. home health can assist as well.
--- NOTE | 2020-03-20 15:34 | CASEMGMT ---
Addendum entered by Radha Warren 03/20/20 15:51: Social Work Return call from [facility] who states she would prefer pt come home on Tuesday as originally planned. Pt updated. Discharge 03/22/20 NADER Duarte Original Note: Social Work SW met with pt to confirm discharge plans. Pt stating she is planning on leaving on Tuesday03/21/20. SW inquired if dgt was working and pt does not think so but is uncertain. With pt permission, phone call to [facility] to confirm discharge plan. VM left requesting return call. Order for hospital bed faxed to [facility] [place]. Home health has been set up through [facility] PT/OT/SN. Plan: D/C home with spouse and support of daughter on 03/21/20 and Home Health PT/OT/SN, pending return call from [facility] with her agreement. NADER Duarte
--- NOTE | 2020-03-20 15:37 | CASEMGMT ---
Social Work [facility] is unable to accept. Referred to [facility]. Rebeca Ricketts, LIFT BUILDER WHOLE OPHTHALMIC PATHOLOGIST
--- NOTE | 2020-03-20 15:52 | CASEMGMT ---
BIMS and PHQ9 interview completed on this date for MDS assessment. NADER Duarte
[2020-03-20] MEDS: MELATONIN 10 MG TABLET PO (22:52)
[2020-03-21 05:47] VITALS: BP 120/55; PULSE 67; RESP 17; TEMP 35.7; O2SAT 93
[2020-03-21] MEDS: Umeclidinium Bromide Inhaler 1 PUFF IH (05:52)
[2020-03-21] MEDS: APIXABAN 5 MG TABLET PO ×2 (05:52→17:45)
[2020-03-21] MEDS: Fluticasone/Salmeterol 232-14 Inhaler 1 PUFF IH ×2 (05:52→17:44)
[2020-03-21 05:53] VITALS: BP 120/55; PULSE 67
[2020-03-21] MEDS: NYSTATIN 500,000 UNIT/5 ML UDC 500000 UNIT PO ×4 (05:53→20:49)
[2020-03-21] MEDS: Metoprolol(XL)Succ 25 MG Tablet PO (05:53)
[2020-03-21] MEDS: Pantoprazole Sodium 40 MG Tablet PO ×2 (05:53→17:45)
[2020-03-21] MEDS: Nystatin Powder 15gm Bottle 1 APPLIC TOPICAL ×3 (05:54→20:47)
--- NOTE | 2020-03-21 13:27 | MDS.RN ---
Pain interview for BORA 03/22/20 completed.
[2020-03-21 15:26] VITALS: BP 80/51; PULSE 80; RESP 16; TEMP 36; O2SAT 95
[2020-03-21 15:50] VITALS: BP 115/52; PULSE 76
[2020-03-21] MEDS: MELATONIN 10 MG TABLET PO (20:49)
[2020-03-21 20:59] VITALS: PULSE 63
[2020-03-22 04:38] VITALS: BP 121/55; PULSE 63; RESP 18; TEMP 36.3; O2SAT 94
[2020-03-22 06:48] VITALS: BP 121/55; PULSE 63
[2020-03-22] MEDS: Metoprolol(XL)Succ 25 MG Tablet PO (06:48)
[2020-03-22] MEDS: APIXABAN 5 MG TABLET PO (06:48)
[2020-03-22] MEDS: NYSTATIN 500,000 UNIT/5 ML UDC 500000 UNIT PO (06:50)
[2020-03-22] MEDS: Pantoprazole Sodium 40 MG Tablet PO (06:50)
[2020-03-22] MEDS: Umeclidinium Bromide Inhaler 1 PUFF IH (06:56)
[2020-03-22] MEDS: Fluticasone/Salmeterol 232-14 Inhaler 1 PUFF IH (06:56)
[2020-03-22 08:17] LABS: Absolute Lymphocyte Count 1.77 X10^3/uL (0.83-4.51); Absolute Neutrophil Count 5.1 X10^3/uL (2.0-7.7); Basophil# 0.01 X10^3/uL; Basophil% 0.1 % (0-1); Eosinophil# 0.12 X10^3/uL; Eosinophils% 1.6 % (0-5); Hematocrit 34.7 % (37-47); Hemoglobin 11.3 g/dL (12.0-15.0); Lymphocyte # 1.77 X10^3/ul (4.0); Lymphocyte % 23.4 % (19-41); Mean Corp Hgb Conc 32.6 g/dL (32-36); Mean Corpuscular Hgb 29.7 pg (27.0-32.0); Mean Corpuscular Volume 91.3 fL (81-99); Mean Platelet Vol. 8.8 fl (6.2-12.0); Monocyte% 7.9 % (0-10); NRBC Flagged by Analyzer 0 % (0-5); Neutrophil # 5.05 X10^3/uL (2.7-7.7); Neutrophil % 66.6 % (47-70); Platelet Count 208 K/mm3 (150-450); RBC Distribution Width CV 16.5 % (11.6-14.6); RBC Distribution Width SD 55.6 fl (35.1-43.9); White Blood Count 7.6 K/mm3 (4.4-11.0)
[2020-03-22 08:44] VITALS: PULSE 73; RESP 18; O2SAT 96
[2020-03-22 08:47] LABS: Anion Gap 7 (5-15); BUN 15 mg/dL (7-18); BUN/Creat Ratio 20.6 RATIO (10-20); Calcium,Total 8.5 mg/dL (8.5-10.1); Chloride 104 mmol/L (98-107); Creatinine, Serum 0.73 mg/dL (0.55-1.02); EST Glomerular Filtration Rate 81 mL/min (>60); Est Glom Filt Rate - Afr Amer 98 mL/min (>60); Estimated Creatinine Clearance 32.17 ml/min; Glucose 109 mg/dL (74-106); Potassium 3.9 mmol/L (3.5-5.1); Sodium Level 135 mmol/L (136-145)
[2020-03-22 10:58] VITALS: BP 124/55; PULSE 73; RESP 16; TEMP 37; O2SAT 96
--- NOTE | 2020-03-22 13:36 | CASEMGMT ---
SOCIAL WORK [facility] unable to provide care for patient. [facility] accepted patient. Start of Care to begin 03/24/20. Order faxed to [facility] (f-[phone]) George Dyson, NETWORK SPECIALIST, STAFFING ANALYST
== END 2020-03-22 11:02 | disposition home health service (06) | DRG 602 ==
PROVIDERS: Internal Medicine Infectious Disease; Admitting Provider Family Medicine Geriatric Medicine; PCP Family Medicine; Visit Provider Family Medicine Geriatric Medicine
DX: L03.317 Cellulitis of buttock (principal); I26.99 Other pulmonary embolism without acute cor pulmonale; U07.1 COVID-19; N39.0 Urinary tract infection, site not specified; E87.1 Hypo-osmolality and hyponatremia; L02.31 Cutaneous abscess of buttock; J44.9 Chronic obstructive pulmonary disease, unspecified; I10 Essential (primary) hypertension; Z87.891 Personal history of nicotine dependence; K21.9 Gastro-esophageal reflux disease without esophagitis; E87.6 Hypokalemia; B96.5 Pseudomonas (aeruginosa) (mallei) (pseudomallei) as the cause of diseases classified elsewhere; B37.9 Candidiasis, unspecified; B35.4 Tinea corporis
CPT/HCPCS: 36415; 71045; 80048; 80053; 81001; 84450; 84460; 85025; 85027; 87077; 87086; 87088; 87184; 87186; 87426; 87635; 92507; 92523; 97110; 97116; 97162; 97165; 97530; 97535; 97802; J7050; A4216; J0744; J7799; U0002; U0003

== ENCOUNTER 2023-10-05 12:53 | Inpatient (IN) | payer MEDICARE, SELFPAY ==
[2023-10-05 11:48] VITALS: BMI 27.8
[2023-10-05 12:39] VITALS: BP 103/65; PULSE 73; RESP 14; TEMP 36.8; O2SAT 93
--- NOTE | 2023-10-05 12:44 | CASEMGMT ---
Social Work- Pt has directives on file naming Osmin, spouse, as primary agent and Sandie and Kike, children, as secondary agents. NADER Pereira
[2023-10-05] MEDS: Lactated Ringers 1,000 ML 50 ML IV (13:42)
[2023-10-05 13:43] LABS: Absolute Lymphocyte Count 2.02 X10^3/uL (0.83-4.51); Absolute Neutrophil Count 6.3 X10^3/uL (2.0-7.7); Basophil# 0.05 X10^3/uL; Basophil% 0.5 % (0-1); Eosinophil# 0.37 X10^3/uL; Hematocrit 41.9 % (37-47); Hemoglobin 13.1 g/dL (12.0-15.0); Lymphocyte # 2.02 X10^3/ul (0.83-4.51); Lymphocyte % 21.6 % (19-41); Mean Corp Hgb Conc 31.3 g/dL (32-36); Mean Corpuscular Hgb 31.1 pg (27.0-32.0); Mean Corpuscular Volume 99.5 fL (81-99); Mean Platelet Vol. 8.6 fl (6.2-12.0); Monocyte# 0.63 X10^3/uL; Monocyte% 6.7 % (0-10); NRBC Flagged by Analyzer 0 % (0-5); Neutrophil # 6.25 X10^3/uL (2.7-7.7); Neutrophil % 66.9 % (47-70); Platelet Count 260 K/mm3 (150-450); RBC Distribution Width CV 14.6 % (11.6-14.6); RBC Distribution Width SD 53.2 fl (35.1-43.9); Red Blood Count 4.21 M/mm3 (4.2-5.4); White Blood Count 9.4 K/mm3 (4.4-11.0)
[2023-10-05 13:57] LABS: Mucous, Urine 0 SEEN /hpf (<or=2+)
[2023-10-05 14:01] LABS: Color, Urine Red (Yellow); Glucose, Dipstick Normal (Normal); Ketone-Dipstick Negative (Negative); Leukocyte Esterase-Dipstick 500 /ul (Negative); Nitrite-Dipstick Negative (Negative); Occult Blood-Urine 250 /ul (Negative); Protein-Dipstick 100 mg/dl (Negative); Urine Bilirubin Dipstick Negative (Negative); Urine Clarity Turbid (Clear); Urine Urobilinogen Normal (Normal); Urine pH 6.5 (5.0 - 8.0)
[2023-10-05 14:10] LABS: Bacteria RARE /hpf (None Seen); Red Blood Cells-Urine > 100 SEEN /hpf (0-5); Squamous Epithelial Cells - UA 0-5 SEEN /hpf (5-10); White Blood Cells 25-50 SEEN /hpf (0-5)
[2023-10-05 14:19] LABS: ALB/GLOB Ratio 0.9 RATIO (0.9-2.4); AST(SGOT) 14 U/L (15-37); Alanine Aminotransfer ALT/SGPT 13 U/L (13-56); Albumin, Serum 3.6 g/dL (3.2-5.0); Alkaline Phosphatase 79 U/L (45-117); Anion Gap 6 (5-15); BUN 16 mg/dL (7-18); BUN/Creat Ratio 17.2 RATIO (10-20); Calcium,Total 9.2 mg/dL (8.5-10.1); Chloride 102 mmol/L (98-107); Creatinine, Serum 0.93 mg/dL (0.55-1.02); EST Glomerular Filtration Rate 61 mL/min (>60); Est Glom Filt Rate - Afr Amer 74 mL/min (>60); Estimated Creatinine Clearance 37.94 ml/min; Globulin 4.2 g/dL (2.2-4.2); Glucose 95 mg/dL (74-106); Magnesium 2.3 mg/dL (1.6-2.6); Potassium 4.3 mmol/L (3.5-5.1); Protein, Total 7.8 g/dL (6.4-8.2); Sodium Level 136 mmol/L (136-145)
[2023-10-05 16:39] VITALS: BP 136/78; PULSE 75; RESP 14; TEMP 36.8; O2SAT 97
--- NOTE | 2023-10-05 17:29 | HP.PCM_ITS ---
HPI - General General Date of Admission: 10/05/23 Date of Service: 10/05/23 Chief Complaint: Gross hematuria HPI Narrative MARI BRYANT, is a 87 F who was admitted for gross hematuria. She was evaluated in the office for cystoscopy a few weeks ago. She developed gross hematuria with symptoms of a urinary tract infection and was seen in the office last week for a straight cath urine specimen. This was sent for a PCR culture which came back negative. We called to check on the patient and she reported continued gross hematuria with spontaneous and continuous urinary incontinence and passage of clots. She denies fever, chills, nausea or vomiting. There is lower abdominal cramping but no diarrhea or constipation at this point. She has been having bladder spasms. 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 [facility] Medical History (Updated 10/05/23 @ 17:[address] Tawanna Hylton MD) Gross hematuria Hearing loss Arthritis Home Medications ?Medication ?Instructions ?Recorded ?Last Taken ?Type fluticasone fur. 200 mcg-umeclid 1 ea IH DAILY lungs 02/22/20 Unknown History 62.5 mcg-vilant 25 mcg inhalat.powder metoprolol succinate 25 mg 25 mg PO DAILY blood pressure 02/22/20 10/05/23 10:00 History tablet,extended release 24 hr Potassium Chloride [Klor-Con M20] 20 meq PO BID potassium ##60 03/20/20 Unknown Rx acetaminophen 500 mg tablet 1,000 mg (2 x 500 mg) PO Q6H PRN 03/20/20 10/04/23 20:00 Rx Pain Score 1-10 apixaban 5 mg tablet 5 mg PO BID blood thinner #60 tabs 03/20/20 10/05/23 10:00 Rx arginine 7 gram-glutam 7 1 packet PO BIDCM #60 packets 03/20/20 Unknown Rx gram-CaHMB 1.5 jhdh-mudsk-qg-min oral pwd pkt melatonin 10 mg sublingual tablet 10 mg PO QHS 03/20/20 Unknown Rx nystatin 100,000 unit/gram topical 1 applic topical BID 03/20/20 Unknown Rx powder pantoprazole 40 mg tablet,delayed 40 mg PO BID acid reflux #60 tabs 01/14/21 Unknown Rx release albuterol sulfate 90 mcg/actuation 2 inh inhalation Q6H PRN 05/19/21 10/05/23 10:21 History aerosol inhaler SOB/WHEEZING Allergy/AdvReac Type Severity Reaction Status Date / Time No Known Allergies Allergy Verified 06/02/21 11:25 Family History no significant family his Surgical History Hx of colectomy Hx of cholecystectomy Hx of colostomy Social History Smoking Status: Former smoker Vital Signs Vital Signs Vital Signs: 10/05/23 12:39 Temperature 98.3 F Temperature Source Oral Pulse Rate 73 Respiratory Rate 14 Blood Pressure 103/65 Blood Pressure Mean 77 Blood Pressure Source Monitor Blood Pressure Position Semi-Fowlers Blood Pressure Location Right Arm Pulse Ox 93 Oxygen Delivery Method Room Air Weight Weight: 66.678 kg Body Mass Index (BMI) 27.8 Physical Exam Const alert, oriented x3 and no apparent distress HEENT normocephalic, head/scalp atraumatic, hearing grossly normal bilaterally, external ears normal, external nose normal and moist oral mucous membranes Eyes General Eye: normal appearance of both eyes Neck supple General: normal visual inspection and trachea midline Lymph Lymphatic: no lymphedema noted Chest inspection of chest normal Resp normal respiratory effort, normal air movement and no retractions Cardio regular rate and regular rhythm GI soft to palpation, non-tender and non-distended external exam normal Narrative: A 24 Kiswahili three-way Simplastic Luna catheter was inserted to straight drain and the balloon was filled with 30 cc of sterile water. The catheter was irrigated with clear yellow urine out. No clots were obtained. Per nursing staff, for her urine specimen earlier today it was bright red with clots. The third port of the catheter was plugged and the catheter was left to straight drain. Extremity normal to inspection Skin no rashes or lesions noted, no wounds, no jaundice and no petechiae Neuro oriented x3, CN's II-XII intact bilaterally and moves all extremities Psych mental status grossly normal, thought process normal, cooperative and affect normal Results Lab / Micro Data 10/05/23 12:53 10/05/23 12:53 Labs: Laboratory Results - last 24 hr 10/05/23 12:39: Urine Color Red, Urine Clarity Turbid, Urine pH 6.5, Ur Specific [place] 1.010, Urine Protein 100 H, Urine Glucose (UA) Normal, Urine Ketones Negative, Urine Occult Blood 250 H, Urine Nitrite Negative, Urine Bilirubin Negative, Urine Urobilinogen Normal, Ur Leukocyte Esterase 500 H, Urine RBC > 100 SEEN, Urine WBC 25-50 SEEN, Ur Squamous Epith Cells 0-5 SEEN, Urine Bacteria RARE, Urine Mucus 0 SEEN 10/05/23 12:53: WBC 9.4, RBC 4.21, Hgb 13.1, Hct 41.9, MCV 99.5 H, MCH 31.1, M CHC 31.3 L, RDW Std Deviation 53.2 H, RDW Coeff of Tricia 14.6, Plt Count 260, MPV 8.6, Immature Gran % (Auto) 0.300, Neut % (Auto) 66.9, Lymph % (Auto) 21.6, [place] % (Auto) 6.7, Eos % (Auto) 4.0, Baso % (Auto) 0.5, Absolute Neuts (auto) 6.3, Absolute Lymphs (auto) 2.02, Nucleated RBC % 0, Sodium 136, Potassium 4.3, Chloride 102, Carbon Dioxide 28.0, Anion Gap 6, BUN 16, Creatinine 0.93, Estim Creat Clear Calc 37.94, Est GFR (MDRD) Af Amer 74, Est GFR (MDRD) Non-Af 61, BUN/Creatinine Ratio 17.2, Glucose 95, Calcium 9.2, Magnesium 2.3, Total Bilirubin 0.70, AST 14 L, ALT 13, Alkaline Phosphatase 79, Total Protein 7.8, Albumin 3.6, Globulin 4.2, Albumin/Globulin Ratio 0.9 Assessment & Plan Assessment/Plan (1) Gross hematuria: (2) Urinary urgency: (3) Dysuria: PLAN: Plan Continue Luna catheter overnight with manual irrigation as needed Await urine culture results and continue Ancef for now Continue supportive care If the urine remains clear overnight, will discharge tomorrow
[2023-10-05 18:00] VITALS: BP 136/78; PULSE 74; RESP 14; TEMP 37.1; O2SAT 97
[2023-10-05] MEDS: Cefazolin 1 GM/50 ML BAG IV (18:56)
[2023-10-05 21:58] VITALS: BP 146/81; PULSE 99; RESP 15; TEMP 36.7; O2SAT 95
[2023-10-06] VITALS: RESP 15
[2023-10-06] MEDS: Acetaminophen 325 MG Tablet 650 MG PO (00:31)
[2023-10-06 03:00] VITALS: BP 154/81; PULSE 101; RESP 15; TEMP 36.5; O2SAT 97
[2023-10-06] MEDS: Cefazolin 1 GM/50 ML BAG IV (05:24)
[2023-10-06 06:19] LABS: Absolute Lymphocyte Count 1.86 X10^3/uL (0.83-4.51); Absolute Neutrophil Count 4.3 X10^3/uL (2.0-7.7); Basophil# 0.04 X10^3/uL; Basophil% 0.6 % (0-1); Eosinophils% 5.5 % (0-5); Hematocrit 39.2 % (37-47); Hemoglobin 12.7 g/dL (12.0-15.0); Lymphocyte # 1.86 X10^3/ul (0.83-4.51); Lymphocyte % 25.6 % (19-41); Mean Corp Hgb Conc 32.4 g/dL (32-36); Mean Corpuscular Hgb 31.7 pg (27.0-32.0); Mean Corpuscular Volume 97.8 fL (81-99); Mean Platelet Vol. 8.2 fl (6.2-12.0); Monocyte# 0.61 X10^3/uL; Monocyte% 8.4 % (0-10); NRBC Flagged by Analyzer 0 % (0-5); Neutrophil # 4.34 X10^3/uL (2.7-7.7); Neutrophil % 59.6 % (47-70); Platelet Count 208 K/mm3 (150-450); RBC Distribution Width CV 14.1 % (11.6-14.6); Red Blood Count 4.01 M/mm3 (4.2-5.4); White Blood Count 7.3 K/mm3 (4.4-11.0)
[2023-10-06 07:01] LABS: Anion Gap 6 (5-15); BUN 14 mg/dL (7-18); BUN/Creat Ratio 18.1 RATIO (10-20); Calcium,Total 8.9 mg/dL (8.5-10.1); Chloride 103 mmol/L (98-107); Creatinine, Serum 0.78 mg/dL (0.55-1.02); EST Glomerular Filtration Rate 75 mL/min (>60); Est Glom Filt Rate - Afr Amer 91 mL/min (>60); Estimated Creatinine Clearance 44.11 ml/min; Glucose 114 mg/dL (74-106); Sodium Level 135 mmol/L (136-145)
--- NOTE | 2023-10-06 08:06 | CT_ITS ---
STUDY: CT ABDOMEN AND PELVIS WITH AND WITHOUT CONTRAST REASON FOR EXAM: Female, 87 years old. Gross hematuria, CTU please RADIATION DOSAGE (If Supplied By Facility): CTDIvol = ( 20.90 ) mGy, DLP = ( 2959.78 ) mGycm TECHNIQUE: Transaxial images were obtained from the dome of the diaphragm to the symphysis pubis without oral contrast. IV 100mL Isovue-300 was administered. Sagittal and coronal images were reconstructed. Individualized dose optimization techniques were used for this CT. COMPARISON: None. FINDINGS: There is an 8.3 mm noncalcified nodule in the right lower lobe as seen on the first image. Mild increased markings in the medial anterior aspect of the left lower lobe suggestive of scarring. Mild scarring in the posterior aspect of the right lower lobe. Coronary artery calcification. Minimal anterior pericardial thickening. Normal liver. The patient is status post cholecystectomy. There are multiple benign calcified granulomata of the spleen. Normal pancreas. There is a small, circumscribed, smooth, low attenuation right adrenal mass, consistent with an adrenal adenoma. This measures 8.4 mm. Normal left adrenal gland. Normal right kidney. 3 mm nonobstructive calculus in the lower pole calyx of the left kidney. There is a small hiatal hernia. Normal small intestine. There are multiple colonic diverticula consistent with diverticulosis. The appendix is visualized and appears normal. There is diffuse atherosclerotic calcification of the abdominal aorta and its major visceral branches, without a demonstrated aneurysm. Normal inferior vena cava. Normal retroperitoneum. A Luna catheter seen within a decompressed urinary bladder. There is evidence of diffuse bladder wall thickening. Calcified fibroid uterus. There is evidence of a left lateral anterior colostomy with hernia containing a portion of the transverse colon and small bowel loops. There are diffuse degenerative changes of the visualized lumbar spine. CT/CT Abd/Pelvis W/WO Contrast IMPRESSION: Diffuse bladder wall thickening. Status post cholecystectomy. Left anterior abdominal wall colostomy containing a portion of the transverse colon and nondilated small bowel loops. Electronically Signed: Domenic Richards MD at 10:04 EDT ,
[2023-10-06 09:00] VITALS: BP 145/77; PULSE 76; RESP 16; TEMP 36.8; O2SAT 93
--- NOTE | 2023-10-06 09:31 | PN.URO_ITS ---
Subjective Subjective Christina is awake and feeling better this morning. She is still having lower abdominal cramping but she thinks it is from her catheter. No issues overnight. Objective Data Objective Data Vital Signs: Vital Signs Temp Pulse Resp BP Pulse Ox O2 Del Method O2 Flow Rate 97.7 F L 101 H 15 154/81 H 97 Room Air 2 10/06/23 03:00 10/06/23 03:00 10/06/23 03:00 10/06/23 03:00 10/06/23 03:00 10/06/23 06:00 10/06/23 03:00 Oxygen Flow Rate (L/min) 2 Oxygen Delivery Method Room Air Weight: 66.678 kg Body Mass Index (BMI) 27.8 Intake & Output: Intake and Output for Last 24 Hours 10/04/23 10/05/23 10/06/23 23:59 23:59 23:59 Intake Total 50 / 50 1001.67 / 1001.67 Output Total 100 / 500 700 / 700 Balance -50 / -450 301.67 / 301.67 Lab / Micro Data 10/06/23 06:12 10/06/23 06:12 Labs: Laboratory Results - last 24 hr 10/05/23 12:39: Urine Color Red, Urine Clarity Turbid, Urine pH 6.5, Ur Specific [place] 1.010, Urine Protein 100 H, Urine Glucose (UA) Normal, Urine Ketones Negative, Urine Occult Blood 250 H, Urine Nitrite Negative, Urine Bilirubin Negative, Urine Urobilinogen Normal, Ur Leukocyte Esterase 500 H, Urine RBC > 100 SEEN, Urine WBC 25-50 SEEN, Ur Squamous Epith Cells 0-5 SEEN, Urine Bacteria RARE, Urine Mucus 0 SEEN 10/05/23 12:53: WBC 9.4, RBC 4.21, Hgb 13.1, Hct 41.9, MCV 99.5 H, MCH 31.1, M CHC 31.3 L, RDW Std Deviation 53.2 H, RDW Coeff of Tricia 14.6, Plt Count 260, MPV 8.6, Immature Gran % (Auto) 0.300, Neut % (Auto) 66.9, Lymph % (Auto) 21.6, [place] % (Auto) 6.7, Eos % (Auto) 4.0, Baso % (Auto) 0.5, Absolute Neuts (auto) 6.3, Absolute Lymphs (auto) 2.02, Nucleated RBC % 0, Sodium 136, Potassium 4.3, Chloride 102, Carbon Dioxide 28.0, Anion Gap 6, BUN 16, Creatinine 0.93, Estim Creat Clear Calc 37.94, Est GFR (MDRD) Af Amer 74, Est GFR (MDRD) Non-Af 61, BUN/Creatinine Ratio 17.2, Glucose 95, Calcium 9.2, Magnesium 2.3, Total Bilirubin 0.70, AST 14 L, ALT 13, Alkaline Phosphatase 79, Total Protein 7.8, Albumin 3.6, Globulin 4.2, Albumin/Globulin Ratio 0.9 10/06/23 06:12: WBC 7.3, RBC 4.01 L, Hgb 12.7, Hct 39.2, MCV 97.8, MCH 31.7, MCHC 32.4, RDW Std Deviation 51.0 H, RDW Coeff of Tricia 14.1, Plt Count 208, MPV 8.2, Immature Gran % (Auto) 0.300, Neut % (Auto) 59.6, Lymph % (Auto) 25.6, [place] % (Auto) 8.4, Eos % (Auto) 5.5 H, Baso % (Auto) 0.6, Absolute Neuts (auto) 4.3, Absolute Lymphs (auto) 1.86, Nucleated RBC % 0, Sodium 135 L, Potassium 4.0, Chloride 103, Carbon Dioxide 26.0, Anion Gap 6, BUN 14, Creatinine 0.78, Estim Creat Clear Calc 44.11, Est GFR (MDRD) Af Amer 91, Est GFR (MDRD) Non-Af 75, BUN/Creatinine Ratio 18.1, Glucose 114 H, Calcium 8.9 Physical Exam Const alert, oriented x3 and no apparent distress HEENT normocephalic, head/scalp atraumatic, hearing grossly normal bilaterally and external nose normal Eyes General Eye: normal appearance of both eyes Neck supple General: normal visual inspection and trachea midline Lymph Lymphatic: no lymphedema noted Chest inspection of chest normal Resp normal respiratory effort, normal air movement and no retractions Cardio regular rate GI soft to palpation, non-tender and non-distended Narrative: The urine is clear yellow in the Luna catheter. Back/Spine no CVA tenderness Extremity normal to inspection Skin no rashes or lesions noted, no wounds, no jaundice, no petechiae and no mottling Neuro oriented x3, CN's II-XII intact bilaterally and moves all extremities Psych mental status grossly normal and thought process normal Assessment & Plan Assessment/Plan (1) Gross hematuria: (2) Dysuria: (3) Urinary urgency: PLAN: Plan Remove Luna catheter Trial of void Diet this morning Review CT Continue antibiotics until urine culture returns Plan for discharge later today if she remains stable
[2023-10-06 11:25] VITALS: PULSE 76
[2023-10-06] MEDS: Metoprolol(XL)Succ 25 MG Tablet PO (11:25)
--- NOTE | 2023-10-06 11:32 | PCM.DC.SUM ---
Providers Date of Admission: 10/05/23 Primary Care Physician: Dr. Soraya Elliott, DO Reason For Visit: GROSS HEMATURA Diagnosis Discharge Diagnosis (1) Gross hematuria: Status: Acute Code(s): R31.0 - Gross hematuria (2) Dysuria: Status: Acute Code(s): R30.0 - Dysuria (3) Urinary urgency: Status: Acute Code(s): R39.15 - Urgency of urination Plan Remove Christine catheter Trial of void Diet this morning Review CT Continue antibiotics until urine culture returns Plan for discharge later today if she remains stable Medications at Discharge Home Medications fluticasone fur. 200 mcg-umeclid 62.5 mcg-vilant 25 mcg inhalat.powder 1 ea IH DAILY lungs 02/22/20 metoprolol succinate 25 mg tablet,extended release 24 hr 25 mg PO DAILY blood pressure 02/22/20 Potassium Chloride [Klor-Con M20] 20 meq PO BID potassium ##60 03/20/20 acetaminophen 500 mg tablet 1,000 mg (2 x 500 mg) PO Q6H PRN Pain Score 1-10 03/20/20 apixaban 5 mg tablet 5 mg PO BID blood thinner #60 tabs 03/20/20 arginine 7 gram-glutam 7 gram-CaHMB 1.5 bcxr-twowi-sq-min oral pwd pkt 1 packet PO BIDCM #60 packets 03/20/20 melatonin 10 mg sublingual tablet 10 mg PO QHS 03/20/20 nystatin 100,000 unit/gram topical powder 1 applic topical BID 03/20/20 pantoprazole 40 mg tablet,delayed release 40 mg PO BID acid reflux #60 tabs 03/20/20 albuterol sulfate 90 mcg/actuation aerosol inhaler 2 inh inhalation Q6H PRN SOB/WHEEZING 05/19/21 cephalexin 500 mg capsule 500 mg PO 3XD post-operative 5 days #15 CAPSULES 10/06/23 Hospital Course Operations None Procedures None Summary of Care Provided Hospital Course: She was admitted for gross hematuria. She had a 3-way christine catheter and her bladder was irrigated. She received antibiotics and supportive care. The urine cleared and she was discharged home in good condition. Weight / BMI Weight Weight: 66.678 kg Body Mass Index (BMI) 27.8 ABG / Lab / Microbiology Data 10/06/23 06:12 10/06/23 06:12 Laboratory: Laboratory Results - last 24 hr 10/05/23 12:39: Urine Color Red, Urine Clarity Turbid, Urine pH 6.5, Ur Specific [place] 1.010, Urine Protein 100 H, Urine Glucose (UA) Normal, Urine Ketones Negative, Urine Occult Blood 250 H, Urine Nitrite Negative, Urine Bilirubin Negative, Urine Urobilinogen Normal, Ur Leukocyte Esterase 500 H, Urine RBC > 100 SEEN, Urine WBC 25-50 SEEN, Ur Squamous Epith Cells 0-5 SEEN, Urine Bacteria RARE, Urine Mucus 0 SEEN 10/05/23 12:53: WBC 9.4, RBC 4.21, Hgb 13.1, Hct 41.9, MCV 99.5 H, MCH 31.1, MCHC 31.3 L, RDW Std Deviation 53.2 H, RDW Coeff of Tricia 14.6, Plt Count 260, MPV 8.6, Immature Gran % (Auto) 0.300, Neut % (Auto) 66.9, Lymph % (Auto) 21.6, [place] % (Auto) 6.7, Eos % (Auto) 4.0, Baso % (Auto) 0.5, Absolute Neuts (auto) 6.3, Absolute Lymphs (auto) 2.02, Nucleated RBC % 0, Sodium 136, Potassium 4.3, Chloride 102, Carbon Dioxide 28.0, Anion Gap 6, BUN 16, Creatinine 0.93, Estim Creat Clear Calc 37.94, Est GFR (MDRD) Af Amer 74, Est GFR (MDRD) Non-Af 61, BUN/Creatinine Ratio 17.2, Glucose 95, Calcium 9.2, Magnesium 2.3, Total Bilirubin 0.70, AST 14 L, ALT 13, Alkaline Phosphatase 79, Total Protein 7.8, Albumin 3.6, Globulin 4.2, Albumin/Globulin Ratio 0.9 10/06/23 06:12: WBC 7.3, RBC 4.01 L, Hgb 12.7, Hct 39.2, MCV 97.8, MCH 31.7, MCHC 32.4, RDW Std Deviation 51.0 H, RDW Coeff of Tricia 14.1, Plt Count 208, MPV 8.2, Immature Gran % (Auto) 0.300, Neut % (Auto) 59.6, Lymph % (Auto) 25.6, [place] % (Auto) 8.4, Eos % (Auto) 5.5 H, Baso % (Auto) 0.6, Absolute Neuts (auto) 4.3, Absolute Lymphs (auto) 1.86, Nucleated RBC % 0, Sodium 135 L, Potassium 4.0, Chloride 103, Carbon Dioxide 26.0, Anion Gap 6, BUN 14, Creatinine 0.78, Estim Creat Clear Calc 44.11, Est GFR (MDRD) Af Amer 91, Est GFR (MDRD) Non-Af 75, BUN/Creatinine Ratio 18.1, Glucose 114 H, Calcium 8.9 Radiography Diagnostic Testing: Radiology Impression Abdomen/Pelvis CT 10/06/23 08:06 IMPRESSION: Diffuse bladder wall thickening. Status post cholecystectomy. Left anterior abdominal wall colostomy containing a portion of the transverse colon and nondilated small bowel loops. Electronically Signed: Domenic Richards MD at 10:04 EDT , D/C Instructions Discharge Diet: No restrictions Discharge Activity: Return to Normal Activity Call your doctor if you observe: Fever of 101 or Higher, Inability to urinate and Inability to have a bowel movement Please Follow Up With: Tawanna Hylton MD When: In the office in 1 to 2 weeks Meaningful Use Info Meaningful Use Meaningful Use Diagnoses (Choose all that apply): None applicable Ischemic Stroke Statin Dosing Therapy Reference: STATIN DOSE THERAPY REFERENCE: * Patients > 75 years receive moderate or high dose statin therapy. * Patients 75 years or YOUNGER should receive HIGH intensity statin dose unless contraindicated. You will be required to document reason for non-treatment if statin daily dose does not meet guidelines. HIGH DOSE STATIN THERAPY DAILY Atorvastatin > than or = to 40 mg Rosuvastatin > than or = to 20 mg Amlodipine + Atorvastatin > than or = to 2.5/40 mg Ezetimibe + Simvastatin 10/80 mg Simvastatin 80mg Discharge Plan Admission Admit Date/Time: 10/05/23 12:53 Attending Provider: Tawanna Hylton Primary Care Provider: Soraya Elliott Discharge Orders/Prescriptions Prescriptions: New cephalexin 500 mg capsule 500 mg PO 3XD 5 Days Qty: 15 0RF Continued albuterol sulfate 90 mcg/actuation HFA aerosol inhaler 2 inh inhalation Q6H PRN (Reason: SOB/WHEEZING) metoprolol succinate 25 MG tablet extended release 24 hr 25 mg PO DAILY mgthesjctir-swwfdwosv-irevjknc 1 EACH blister with device 1 ea IH DAILY acetaminophen 500 MG tablet 1,000 mg PO Q6H PRN (Reason: Pain Score 1-10) 0RF nystatin 1 APPLIC bottle 1 applic TOPICAL BID 0RF Protocol: *Topical Application Instructions APPLICATION INSTRUCTIONS: Apply to groin and buttock fold melatonin 10 MG tablet 10 mg PO QHS 0RF xmzvo-qyau-UmQUV-hrwlxi-no-wgs 1 PACKET packet 1 packet PO BIDCM Qty: 60 0RF pantoprazole 40 MG tablet 40 mg PO BID Qty: 60 0RF apixaban 5 MG tablet 5 mg PO BID Qty: 60 0RF Potassium Chloride [Klor-Con M20] 20 MEQ Tab.Er.Prt 20 meq PO BID Qty: 60 0RF Referrals / Follow Up: Soraya Elliott DO [Primary Care Provider] - Disposition Disposition (needs filled in before D/C Order can be placed): Home, Self Care
--- NOTE | 2023-10-06 12:30 | CASEMGMT ---
LANE HOGUE Assessment Face to Face with patient for initial transition planning/care coordination assessment. LANE HOGUE introduced self and role at [facility], pt voices understanding. Pt is A&Ox4 and is resting comfortably in the chair and is calm. Pt son Kike at bedside. Care providers, pharmacy, and demographics verified. Admitting dx: Gross Hematuria PCP: Soraya Elliott Specialists: Warner (Uro) Preferred Pharmacy: [facility] [place] Insurance: AARP MCR ADV Prescription Benefit: Yes LNOK: Sandie Lebron (Daughter), iKke Pinto (Son) Living Arrangements: Pt lives alone in a ranch style home with one step to enter ADLs/IADLs: Ind Transportation: Sandie Stokes DME: Pt states that she wears 2L HS only via [place] through [facility]. TC to [facility] at this time and [facility] states that the pt current Rx is 2L Continuous. Pt states that she has a concentrator, portable tanks, and a pulse ox. Per the pt RN, the pt does not require O2 going home today. Pt also reports that she has a cane and denies the need for a medical alert button HHC/SNF: States Hx with HHC but unsre of what agency. denies SNF Hx or needs Pt?s goal: Home Plan: Home no needs. 6-Click is 20. Pt DC order is placed and the pt denies the need for HHC or OP Tx. Pt will be discharging with an ATB. Pt states that she feels safe with this plan and denies further needs. Suzanna Reese RN, CM
[2023-10-06 12:40] VITALS: BP 118/77; PULSE 105; RESP 18; TEMP 36.3; O2SAT 94
== END 2023-10-06 12:50 | disposition home or self-care (01) | DRG 696 ==
PROVIDERS: Admitting Provider Urology; PCP Family Medicine; Referring Provider Urology; Visit Provider Urology
DX: R31.0 Gross hematuria (principal); R30.0 Dysuria; R39.15 Urgency of urination; Z79.01 Long term (current) use of anticoagulants; Z86.711 Personal history of pulmonary embolism; Z87.891 Personal history of nicotine dependence
CPT/HCPCS: 36415; 74178; 80048; 80053; 81001; 83735; 85025; 87086; 87088; J7120; Q9967